=== PATIENT | female | born 1975 | race Caucasian/White ===

== ENCOUNTER → 2020-04-04 09:41 | Outpatient (CLI) | payer BC, SELFPAY ==
--- NOTE | ~2020-04-04 | XR_ITS ---
EXAMINATION:XR cervical spine 4-5V DATE: 04/04/2020 09:59 INDICATION: Neck pain TECHNIQUE: AP, lateral, bilateral oblique, and odontoid views of the cervical spine are provided. COMPARISON: None FINDINGS: Alignment is normal. The odontoid is intact. No fracture is identified. The vertebral body heights are maintained. There is mild loss of intervertebral disc space height at C5-6 and C6-7. Smal l degenerative osteophytes project from the anterior endplates of multiple vertebral bodies. There is mild facet and uncovertebral joint osteoarthritis at the lower cervical spine. Prevertebral soft tis sues are normal. IMPRESSION: 1. Mild cervical spondylosis. Reviewed, dictated and finalized at location A. APPRENTICE MECHANIC
--- NOTE | ~2020-04-04 | XR_ITS ---
EXAMINATION: XR thoracic spine 2V DATE: 04/04/2020 09:59 INDICATION: Right-sided neck and shoulder pain TECHNIQUE: AP, lateral and lateral swimmer's views of the thoracic spine were obtained. COMPARISON: 05/31/2018 FINDINGS: There is moderate loss of intervertebral disc space height in the midthoracic spine and mil d loss at multiple additional levels. There is no fracture. There is mild anterior wedging of several thoracic vertebra, likely physiologic. Bone alignment is normal. IMPRESSION: 1. Moderate thoracic spondylosis without acute findings or significant interval change. Reviewed, dictated and finalized at location A. ERY TEST ENGINEER
== END ==
PROVIDERS: PCP Family Medicine; Visit Provider Chiropractor
DX: M47.23 Other spondylosis with radiculopathy, cervicothoracic region (principal)
CPT/HCPCS: 72050; 72070

== ENCOUNTER 2021-10-03 12:44 | Emergency (ER) | payer BC, SELFPAY ==
[2021-10-03 12:55] VITALS: BP 120/90; PULSE 97; RESP 18; TEMP 36.5; O2SAT 99
--- NOTE | 2021-10-03 13:34 | ED.GENADULT ---
HPI - General Adult General Chief complaint: Ear Stated complaint: headache,rt ear discomfort Source: patient Mode of arrival: ambulatory Limitations: no limitations History of Present Illness HPI narrative: Patient presents for evaluation of respiratory symptoms for the last 8 days. Symptoms include sinus congestion, postnasal drainage, right-sided otalgia and cough. She called her PCP last week and received scripts for azithromycin and Keflex. She completed the azithromycin and is still taking the keflex. She reports a sinus headache and popping in the right ear. No recent sick contacts. She smokes 1/2 ppd. No personal hx of COVID. She has received her COVID vaccination. She has an appt with her PCP tomorrow. She states she does not feel like she is getting better. Related Data Home Medications Medication Instructions Recorded Confirmed alprazolam 0.5 mg tablet (Xanax) 0.5 mg PO DIRECTED 10/03/21 10/03/21 azithromycin 250 mg tablet 250 mg PO DAILY 10/03/21 10/03/21 (Zithromax Z-Raphael) bupropion HCl 150 mg 24 hr tablet, 150 tablet PO DAILY 10/03/21 10/03/21 extended release buspirone 5 mg tablet 5 tablet TID 10/03/21 10/03/21 cephalexin 500 mg capsule 500 cap Q8-10H 10/03/21 10/03/21 omeprazole 40 mg capsule,delayed 40 cap DAILY 10/03/21 10/03/21 release paroxetine HCl 40 mg tablet 40 tablet PO DAILY 10/03/21 10/03/21 triamterene 37.5 1 tablet DAILY 10/03/21 10/03/21 mg-hydrochlorothiazide 25 mg tablet zolpidem 10 mg tablet 1 tablet HS 10/03/21 10/03/21 Allergies Allergy/AdvReac Type Severity Reaction Status Date / Time No Known Allergies Allergy Verified 10/03/21 13:02 Review of Systems Review of Systems: CONSTITUTIONAL: Denies fever, chills, or sweats. EYES: Denies visual changes, redness, or discharge. ENT: Reports sinus congestion, postnasal drainage, rhinorrhea, and right sided otalgia CARDIOVASCULAR: Denies chest pain, palpitations, or edema. RESPIRATORY: Reports cough, Denies dyspnea. GASTROINTESTINAL: Denies abdominal pain, nausea, vomiting, or diarrhea. GENITOURINARY: Denies dysuria or hematuria. SKIN: Denies rash or itching. MUSCULOSKELETAL: Denies back pain, joint pain, or myalgia. NEUROLOGIC: Reports headahce. Denies numbness, dizziness, or weakness. PSYCHIATRIC: Denies anxiety or depression. [facility] Past Medical History Medical History History of tobacco use Family History Family History (Reviewed 10/03/21 @ 13:48 by Phi Nunez, [facility], ) Father Brain cancer Social History Social History (Reviewed 10/03/21 @ 13:48 by Phi Nunez, [facility], ) Smoking packs per day: 0.5 Smoking cigarettes per day: 10.0 Smoking status: Current every day smoker Tobacco type: cigarettes Substance use: never Gender identity (if verbalized by the patient): Female Spiritual care concerns: No Exam Narrative: GENERAL: Well-appearing, well-nourished, and in no acute distress. HEAD: Normocephalic, atraumatic. EYES: PERRLA and EOMI. ENT: Nares clear, no rhinorrhea or epistaxis. Mucous membranes moist. Oropharynx without tonsillar hypertrophy exudate or other lesions. Bilateral TMs pearly haynes nonbulging NECK: Supple. No adenopathy or masses. No carotid bruits or JVD CHEST: Clear to auscultation. No respiratory distress. No wheezes rales or rhonchi HEART: Regular rate and rhythm. No murmur heard. Normal peripheral pulses. ABDOMEN: Soft, nontender, nondistended, normal active bowel sounds. EXTREMITIES: Normal range of motion. No edema. SKIN: Warm, dry, no rash. NEURO: No focal deficits. Alert and oriented x3. PSYCH: Normal mood and affect. Course Course Emergency Course: This is a 46-year-old female who present with complaints of respiratory symptoms. She completed azithromycin and is currently taking Keflex. This seems to be appropriate to cover for CAP/sinusitis. She had a flu here that was negative. She declined COVID testing. Unfortunately, we do not
== END 2021-10-03 13:33 | disposition home or self-care (01) ==
PROVIDERS: Emergency Provider Nurse Practitioner; PCP Family Medicine
DX: J32.9 Chronic sinusitis, unspecified (principal); F17.210 Nicotine dependence, cigarettes, uncomplicated
CPT/HCPCS: 87804; 99213; G0463

== ENCOUNTER 2023-03-30 08:28 | Emergency (ER) | payer BC, SELFPAY ==
--- NOTE | 2023-03-30 08:36 | ED.URI ---
HPI - URI/Sore Throat General Chief Complaint: Upper Respiratory Infection Stated Complaint: Sinus Time Seen by Provider: 03/30/23 08:42 Source: patient Mode of arrival: ambulatory Limitations: no limitations History of Present Illness HPI Narrative: Mika is a 48-year-old female patient presenting to the clinic today with complaints of sinus congestion and coughing. She reports symptoms have been going on for 6 days. She denies any fever or chills. Denies any shortness of breath or chest pain. Nasal drainage is clear with blood in it at times. MD elicited complaint: cough, nasal congestion and sinus pain Related Data Home Medications Medication Instructions Recorded Confirmed alprazolam 0.5 mg tablet (Xanax) 0.5 mg PO DIRECTED 10/03/21 10/03/21 bupropion HCl 150 mg 24 hr tablet, 150 tablet PO DAILY 10/03/21 10/03/21 extended release buspirone 5 mg tablet 5 tablet TID 10/03/21 10/03/21 omeprazole 40 mg capsule,delayed 40 cap DAILY 10/03/21 10/03/21 release paroxetine HCl 40 mg tablet 40 tablet PO DAILY 10/03/21 10/03/21 triamterene 37.5 1 tablet DAILY 10/03/21 10/03/21 mg-hydrochlorothiazide 25 mg tablet zolpidem 10 mg tablet 1 tablet HS 10/03/21 10/03/21 Allergies Allergy/AdvReac Type Severity Reaction Status Date / Time No Known Allergies Allergy Verified 10/03/21 13:02 Review of Systems Review of Systems: Pertinent positives per HPI. Patient denies any fever, chills, rash, headache, visual changes, dizziness, shortness of breath, chest pain, palpitations, nausea, vomiting, diarrhea, constipation, abdominal pain, or any urinary issues. [facility] Past Medical History Medical History History of tobacco use Family History Family History Father Brain cancer Social History Social History Smoking packs per day: 0.5 Smoking cigarettes per day: 10.0 Smoking status: Current every day smoker Tobacco type: cigarettes Substance use: never Gender identity (if verbalized by the patient): Female Spiritual care concerns: No Comments At the time of my signature, I reviewed and agree with the nursing past medical, surgical, social, and family history. There is no relevant family history pertinent to the patient complaint. Exam Narrative: General: Well-developed, well nourished, in no apparent distress Head: Normocephalic, atraumatic Eyes: Pupils equally round and reactive to light bilaterally, EOM intact, sclera and conjunctive clear, no discharge, lids normal Ears: TMs intact and clear, ear canals clear, no drainage, grossly hearing normal. Nose: Nares patent, cler nasal discharge, moderate inflammation, no sinus tenderness. Mouth: Oral pharynx without lesions or masses, good dentition, MMM. Neck: Supple, trachea midline, no enlargement of anterior or posterior cervical nodes, no thyroid masses or goiter palpable. Cardio: Regular rate and rhythm, s1 and s2 normal, no murmur appreciated. Resp: Clear to auscultation bilaterally, no rhonchi, rales, wheezing or rubs Course Course Emergency Course: Portions of this record may have been created with voice recognition software. Level of Care: Express Care Visit Vital Signs Vital signs: Vital signs reviewed MDM - URI/Sore Throat MDM Narrative Medical decision making narrative: At the time of visit patient is resting comfortably on the exam table. Patient appears to be nontoxic. I suspect patient has URI. Supportive measures were discussed with the patient and they voiced understanding discharge instructions and agrees to treatment plan. Return precautions reviewed Differential Diagnosis Differential diagnosis: Likely upper respiratory infection, otitis media, sinusitis, viral infection, bronchitis, influenza, pharyngitis and other (COVID) Discharge Plan Discharge Clinical Impression: Upper respirato
[2023-03-30 08:38] VITALS: BP 115/71; PULSE 104; RESP 18; TEMP 36.3; O2SAT 99
== END 2023-03-30 09:04 | disposition home or self-care (01) ==
PROVIDERS: Emergency Provider Nurse Practitioner Family; PCP Family Medicine
DX: J06.9 Acute upper respiratory infection, unspecified (principal); F17.210 Nicotine dependence, cigarettes, uncomplicated
CPT/HCPCS: 99213; G0463

== ENCOUNTER 2023-04-27 08:06 | Emergency (ER) | payer BC, SELFPAY ==
--- NOTE | 2023-04-27 08:12 | ED.GENADULT ---
HPI - General Adult General Chief complaint: Ear Stated complaint: Right Ear Clogged Time Seen by Provider: 04/27/23 08:13 Source: patient Mode of arrival: ambulatory Limitations: no limitations History of Present Illness HPI narrative: 48-year-old female patient presents to the [facility] with complaints of right ear pain. Patient states she was seen about a week ago was given some steroids states this morning she was woken up with pain and felt like her ear was more clogged and had been. Patient has a runny nose with congestion. Denies fevers, body aches or chills. Patient states she has had some clear drainage coming from the right ear. Denies any pain in the left ear. Related Data Home Medications Medication Instructions Recorded Confirmed alprazolam 0.5 mg tablet (Xanax) 0.5 mg PO DIRECTED 10/03/21 04/27/23 omeprazole 40 mg capsule,delayed 40 cap DAILY 10/03/21 04/27/23 release paroxetine HCl 40 mg tablet 40 tablet PO DAILY 10/03/21 04/27/23 triamterene 37.5 1 tablet DAILY 10/03/21 04/27/23 mg-hydrochlorothiazide 25 mg tablet zolpidem 10 mg tablet 1 tablet HS 10/03/21 04/27/23 clonidine 0.2 mg/24 hr weekly See Rx Instructions .Route .COMPLEX 04/27/23 04/27/23 transdermal patch Allergies Allergy/AdvReac Type Severity Reaction Status Date / Time No Known Allergies Allergy Verified 04/27/23 08:12 Review of Systems Review of Systems: CONSTITUTIONAL: Denies fever, chills, or sweats. EYES: Denies visual changes, redness, or discharge. ENT: Positive rhinorrhea, congestion, denies sore throat, or positive right otalgia. CARDIOVASCULAR: Denies chest pain, palpitations, or edema. RESPIRATORY: Denies cough or dyspnea. GASTROINTESTINAL: Denies abdominal pain, nausea, vomiting, or diarrhea. GENITOURINARY: Denies dysuria or hematuria. SKIN: Denies rash or itching. MUSCULOSKELETAL: Denies back pain, joint pain, or myalgia. NEUROLOGIC: Denies headache, numbness, or weakness. PSYCHIATRIC: Denies anxiety or depression. [facility] Past Medical History Medical History History of tobacco use Family History Family History Father Brain cancer Social History Social History Smoking packs per day: 0.5 Smoking cigarettes per day: 10.0 Smoking status: Current every day smoker Tobacco type: cigarettes Substance use: never Gender identity (if verbalized by the patient): Female Spiritual care concerns: No Comments At the time of my signature I agree with nursing past medical history, surgical, social, and family history. There is no relevant family history pertinent to the presenting complaint. Exam Narrative: GENERAL: Well-appearing, well-nourished, and in no acute distress. HEAD: Normocephalic, atraumatic. EYES: PERRLA and EOMI. ENT: Nares with erythema edema noted bilaterally with the left nares swollen shut, no rhinorrhea or epistaxis. Mucous membranes moist. posterior pharynx with no erythema, tonsillar enlargement, exudates or lesions present. The right ear does appear to have some erythema possibly a small perforation to the eardrum NECK: Supple. No lymphadenopathy CHEST: Clear to auscultation. No respiratory distress. HEART: Regular rate and rhythm. No murmur heard. Normal peripheral pulses. ABDOMEN: Soft, nontender, nondistended, normal active bowel sounds. EXTREMITIES: Normal range of motion. No edema. SKIN: Warm, dry, no rash. NEURO: No focal deficits. Alert and oriented x3. Course Course Level of Care: Express Care Visit Vital Signs Vital signs: Vital Signs Temperature 36.4 C L 04/27/23 08:15 Pulse Rate 94 04/27/23 08:15 Respiratory Rate 16 04/27/23 08:15 Blood Pressure 115/77 04/27/23 08:15 Pulse Oximetry 99 04/27/23 08:15 Oxygen Delivery Room Air 04/27/23 08:15 Temperature 36.4 C L 04/27/23 08:15 Pulse Rate 94 04/27/23 08:1
[2023-04-27 08:15] VITALS: BP 115/77; PULSE 94; RESP 16; TEMP 36.4; O2SAT 99
== END 2023-04-27 08:46 | disposition home or self-care (01) ==
PROVIDERS: Emergency Provider Nurse Practitioner Family; PCP Physician Assistant
DX: H66.91 Otitis media, unspecified, right ear (principal); F17.210 Nicotine dependence, cigarettes, uncomplicated
CPT/HCPCS: 99213; G0463

== ENCOUNTER 2024-10-21 11:36 | Emergency (ER) | payer OTHER, SELFPAY ==
--- NOTE | 2024-10-21 11:37 | ED_ITS ---
HPI - Wound/Laceration General Chief Complaint: Wound/Laceration Stated Complaint: Rt hand Finger Cut Time Seen by Provider: 10/21/24 11:37 Source: patient Mode of arrival: ambulatory Limitations: no limitations History of Present Illness HPI narrative: Hayde is a 49-year-old female patient presenting to the clinic today with complaints of a cut on her right 5th finger. She reports she was using a brand new mandolin-cutting cucumbers when she cut her finger. This occurred just prior to arrival. Has a 2cm skin avulsion to the ulnar side of the right 5th finger with nail involvement. Patient has the skin the was accidently removed. Lost a lateral part of the fingernail. States she can not get it to stop bleeding. Tetanus unk. Rates pain 01/22. Related Data Home Medications ?Medication ?Instructions ?Recorded ?Confirmed ?Last Taken ?Type alprazolam 0.5 mg tablet (Xanax) 0.5 mg PO DIRECTED 10/03/21 04/27/23 Unknown History omeprazole 40 mg capsule,delayed 40 cap DAILY 10/03/21 04/27/23 Unknown History release paroxetine HCl 40 mg tablet 40 tablet PO DAILY 10/03/21 04/27/23 Unknown History triamterene 37.5 1 tablet DAILY 10/03/21 04/27/23 Unknown History mg-hydrochlorothiazide 25 mg tablet zolpidem 10 mg tablet 1 tablet HS 10/03/21 04/27/23 Unknown History Allergies Allergy/AdvReac Type Severity Reaction Status Date / Time No Known Allergies Allergy Verified 10/21/24 11:44 Review of Systems Review of Systems: Pertinent positives per HPI. Patient denies any fever, chills, rash, headache, visual changes, dizziness, cough, runny nose, sore throat, shortness of breath, chest pain, palpitations, nausea, vomiting, diarrhea, constipation, abdominal pain, or any urinary issues. [facility] Past Medical History Medical History History of tobacco use Family History Family History Father Brain cancer Social History Social History Smoking packs per day: 0.5 Smoking cigarettes per day: 10.0 Smoking status: Current every day smoker Tobacco type: cigarettes Substance use: never Gender identity (if verbalized by the patient): Female Spiritual care concerns: No Comments At the time of my signature, I reviewed and agree with the nursing past medical, surgical, social, and family history. There is no relevant family history pertinent to the patient complaint. Exam Narrative: General: Well-developed, well nourished, in no apparent distress Head: Normocephalic, atraumatic. Cardio: Regular rate and rhythm, s1 and s2 normal, no murmur appreciated. Resp: Clear to auscultation bilaterally, no rhonchi, rales, wheezing or rubs. Integumentary: [place], warm, and dry, 2 x0.5 cm skin avulsion to the ulnar side of the right 5th finger with nail involvement. Not overlying the dip or pip joint. Bleeding controlled. Course Course Emergency Course: Portions of this record may have been created with voice recognition software. Level of Care: Express Care Visit Vital Signs Vital signs: Vital Signs Temperature 36.5 C 10/21/24 11:44 Pulse Rate 78 10/21/24 11:44 Respiratory Rate 18 10/21/24 11:44 Blood Pressure 108/69 10/21/24 11:44 Pulse Oximetry 97 10/21/24 11:44 Oxygen Delivery Room Air 10/21/24 11:44 Temperature 36.5 C 10/21/24 11:44 Pulse Rate 78 10/21/24 11:44 Respiratory Rate 18 10/21/24 11:44 Blood Pressure 108/69 10/21/24 11:44 Pulse Oximetry 97 10/21/24 11:44 Oxygen Delivery Room Air 10/21/24 11:44 Vital signs reviewed Procedures Laceration Laceration 1: Date: 10/21/24 Site: hand (5th finger) Side (If applicable): right Size (cm): 2 Description: irregular, clean and other (Complete skin avulsion with lateral nail involvement. ) Depth: simple, single layer Local Anesthetic: lidocaine 1% Amount of anesthesia used (mL): 3 Pre-repair: wound explored, irrigated and irrigated extensively ====== Skin Level ====== Skin layer closed with: nylon Size (cm): 5-0 Number of sutures: 8 Technique: simple, interrupted ====== Subcutaneous Layer ====== ====== Muscle Layer ====== ====== Tendon Layer ====== Dressing: Verbal consent obtained for laceration repair/skin reattachment. Risk and benefits explained and patient voiced understanding. Area was cleansed with sterile saline and antiseptic wound wash. Removed skin was cleansed with sterile saline and antiseptic wound wash. A 27 gauge needle was then used to instill (3) ml of 1% lidocaine without epi into the proximal distal phalanx to create digital block. Area was prepped and draped using sterile technique. A 5-0 suture on a p needle was used to place (8) interrupted sutures reattaching the avulsed skin and bringing the wound edges together- well approximated. Patient tolerated procedure well. Tube gauze and sterile dressing applied. Tetanus updated. MDM - Wound/Laceration MDM Narrative Medical decision making narrative: At the time of visit patient is resting comfortably on the exam table. Patient appears to be nontoxic. Procedures: Removed skin was cleaned/irrigated using sterile normal saline and antiseptic wound wash. Laceration repair was performed-reattaching the skin using 8 interrupted sutures. Skin edges well approximated. Patient tolerated well. Plan: Patient has skin avulsion to the right 5th finger with nail involvement. Skin was cleansed and reattached. Eight interrupted sutures were placed bringing the wound edges well approximate. Patient tolerated procedure well. Will have the patient follow-up in [address] Batista or PCP for wound check. Sutures out in 10-14 days. Will cover for secondary infection-Keflex sent to the pharmacy Supportive measures were discussed with the patient and they voiced understanding discharge instructions and agrees to treatment plan. Return precautions reviewed Differential Diagnosis Differential diagnosis: Likely laceration, abscess, abrasion and avulsion of s kin Discharge Plan Discharge Clinical Impression: Avulsion of skin of finger Qualifiers: Encounter type: initial encounter Qualified Code(s): S61.209A - Unspecified open wound of unspecified finger without damage to nail, initial encounter Patient Disposition: Home Condition: Stable Instructions: Antibiotic Form, Skin Avulsion (ED) Additional Instructions: Tdap was updated in the clinic today. You have a 2cm skin avulsion to the right 5th finger with nail involvement. Skin was reattached in the clinic today- well approximated- 8 sutures were placed. Wound was cleansed in the clinic today. Leave bandage on for 24 hours then may remove and apply band aide covering as needed. Keep wound clean and dry Do not submerge your hand in water or apply any ointments Wash daily with soap and water and pat dry. Skin sutures out in 10-14 days Take cephalexin as prescribed. Follow up with Dr. Batista- call office to schedule an appointment- would like you to be seen in two days for wound check. Watch for signs and symptoms of infection- redness, streaking, swelling, purulent discharge, or increase in pain. Follow up with your PCP in 2 days for wound check if you can not get into see Dr. Batista. Patient Language: Wallisian Prescriptions: New cephalexin 500 mg capsule 500 mg PO Q12H 7 Days Qty: 14 0RF No Action omeprazole 40 mg capsule,delayed release(DR/EC) 40 cap DAILY alprazolam [Xanax] 0.5 mg Tablet 0.5 mg PO DIRECTED triamterene-hydrochlorothiazid 37.5-25 mg tablet 1 tablet DAILY zolpidem 10 mg tablet 1 tablet HS paroxetine HCl 40 mg tablet 40 tablet PO DAILY amoxicillin 500 mg tablet 1,000 mg PO Q12H 7 Days Qty: 28 0RF Follow-up/Referrals: Adalberto Macdonald MD [Physician] - 2 Days (Skin avulsion with nail involvement to the left 5th finger with reattachment of skin ) Carmen Diana PA-C [Physician Mechanic Chief] - Time of Disposition: 12:40 Quality NIHSS Nursing Documentation ED NIHSS nursing documentation: reviewed/agree
--- OUTSIDE RECORDS SUMMARY | 2024-10-21 11:39 | XMS_ITS | Clinical Summary ---
Author Organization [facility] Address [address] [place] [id number] Care Team Providers Care Presales Consultant Name Role Phone No, Physician Primary Care Provider [phone] Allergies Active Allergy Reactions Criticality Noted Date Comments Prochlorperazine Other (See comments) High 4 HR jumped to 140's SVT Medications ALPRAZolam (XANAX) 0.5 mg tablet TK 1 TO 2 TS PO QD 2 12/08/19 19 Active omeprazole (PriLOSEC) 40 mg capsule TK 1 C PO D 3 11/13/19 19 Active TRIAMTERENE-HYDROC HLOROTHIAZIDE 37.5-25 mg per tablet TK 1 T PO D 3 11/13/19 19 Active zolpidem (AMBIEN) 10 mg tablet TK 1 T PO QPM PRF INSOMNIA 2 12/08/19 19 Active PARoxetine (PAXIL) 40 mg tabletIndications: Hot flashes,Night sweats Take 1 tablet (40 mg total) by mouth every morning 90 tablet 4 12/30/19 20 Active cloNIDine (CATAPRES-TTS) 0.2 mg/24 hr APPLY 1 PATCH TOPICALLY TO THE SKIN EVERY WEEK DIRECTED 07/07/19 22 Active vitamin E 400 unit capsule Take 1 capsule (400 Units total) by mouth daily Active HYDROcodone-acetam inophen (NORCO) 5-325 mg per tabletIndications: Pain Take 1 tablet by mouth every 6 (six) hours as needed for pain 20 tablet 12/06/19 24 Active ondansetron ODT (ZOFRAN-ODT) 8 mg disintegrating tabletIndications: Prevention of Post-Operative Nausea and Vomiting Take 1 tablet (8 mg total) by mouth every 8 (eight) hours as needed for nausea or vomiting 12 tablet 1 12/06/19 24 Active diazePAM (VALIUM) 10 mg tabletIndications: Muscle Spasm Take 1 tablet (10 mg total) by mouth every 8 (eight) hours as needed for muscle spasms 30 tablet 1 12/06/19 24 Active amoxicillin-clavul anate (Augmentin) 875-125 mg per tablet Take 1 tablet (875 mg of amoxicillin total) by mouth 2 (two) times a day for 3 doses Take 1 tablet night before, morning of, and night of dental cleaning. 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 Family history of breast cancer 08/23/2021 Headache 11/14/2015 Overview (08/26/2023): Location: None;Severity: Moderate;Progress: Stable;Added By: Nanette Veras;Add to Current Problems: NO Dizziness and giddiness 10/06/2015 Overview (08/26/2023): Location: None;Severity: Moderate;Progress: Stable;Added By: Gina Blank;Add to Current Problems: YES Otitis media 06/14/2015 Overview (08/26/2023): Location: None;Severity: Moderate;Progress: Stable;Added By: Yue Ireland;Add to Current Problems: YES Acute maxillary sinusitis 11/15/2014 Overview (08/26/2023): Location: None;Severity: Moderate;Progress: Stable;Added By: Yue Ireland;Add to Current Problems: YES Location: None;Severity: Moderate;Progress: Stable;Added By: Nanette Veras;Add to Current Problems: YES Gastroesophageal reflux disease 08/04/2014 Overview (08/26/2023): Location: None;Severity: Moderate;Progress: Stable;Added By: Nanette Veras;Add to Current Problems: YES Angioedema 04/15/2014 Overview (08/26/2023): Location: None;Severity: Moderate;Progress: Stable;Added By: Jocelyne William;Add to Current Problems: YES Allergic urticaria 04/12/2014 Overview (08/26/2023): Location: None;Severity: Moderate;Progress: Stable;Added By: Damir Dwyer;Add to Current Problems: YES Benign essential hypertension 10/12/2013 Overview (08/26/2023): Location: None;Severity: Moderate;Progress: Stable;Added By: Nanette Veras;Add to Current Problems: YES Location: None;Severity: Moderate;Progress: Stable;Added By: Angelina George;Add to Current Problems: YES Elevated blood-pressure read ing without diagnosis of hypertension 10/12/2013 Overview (08/26/2023): Location: None;Severity: Moderate;Progress: Stable;Added By: Sunitha Cortes;Add to Current Problems: NO Generalized anxiety disorder 05/10/2013 Overview (08/26/2023): Location: None;Severity: Moderate;Progress: Stable;Added By: Jeannette Sauceda;Add to Current Problems: NO Transient insomnia 05/10/2013 Overview (08/26/2023): Location: None;Severity: Moderate;Progress: Stable;Added By: Jeannette Sauceda;Add to Current Problems: NO Psychogenic headache 02/02/2013 Overview (08/26/2023): Location: None;Severity: Moderate;Progress: Stable;Added By: Nanette Veras;Add to Current Problems: NO Tobacco dependence syndrome 02/02/2013 Overview (08/26/2023): Location: None;Severity: Moderate;Progress: Stable;Added By: Yue Ireland;Add to Current Problems: YES Location: None;Severity: Moderate;Progress: Stable;Added By: Nanette Veras;Add to Current Problems: NO Acute upper respiratory infection 06/05/2012 Overview (08/26/2023): Location: None;Severity: Moderate;Progress: Stable;Added By: Yue Ireland;Add to Current Problems: NO Cough 06/05/2012 Overview (08/26/2023): Location: None;Severity: Moderate;Progress: Stable;Added By: Margaux Leyva;Add to Current Problems: NO Immunizations Immunization Administration Dates Next Due Pfizer SARS-CoV-2 Monovalent Vaccination (12+ Yrs) PURPLE 07/15/2020,06/24/2020 Surgical History Surgery Date Site/Laterality Comments CERVICAL CONE BIOPSY COMBINED HYSTEROSCOPY DIAGNOSTIC / D&C SALPINGECTOMY Bilateral ENDOMETRIAL ABLATION US ABDOMEN COMPLETE W LIVER DOPPLER (C) 10/23/2017 Right OOPHORECTOMY Left TUBAL LIGATION MASTECTOMY 02/07/2022 Bilateral BILATERAL BREAST RECONSTRUCTION WITH TISSUE JUNIOR GRAPHIC DESIGNER AND TISSUE MATRIX BREAST SURGERY 06/13/2022 - 07/13/2022 Bilateral EXCHANGE BILATERAL TISSUE EXPANDERS FOR PERMANENT SILICONE GEL IMPLANTS Medical History Medical History Date Comments Hypertension History of abnormal cervical Pap smear Anxiety Ovarian cyst Motion sickness GERD (gastroesophageal reflux disease) Genetic susceptibility to ma lignant neoplasm of breast PONV (postoperative nausea and vomiting) Benign essential hypertension 10/12/2013 Lo cation: None;Severity: Moderate;Progress: Stable;Added By: Nanette Veras;Add to Current Problems: YESLocation: None;Severity: Moderate;Progress: Stable;Added By: Angelina George;Add to Current Problems: YES Diverticulosis of colon 11/24/2021 Gastroesophageal reflux disease 08/04/2014 Location: None;Severity: Moderate;Progress: Stable;Added By: Nanette Veras;Add to Current Problems: YES Generalized anxiety disorder 05/10/2013 Loc ation: None;Severity: Moderate;Progress: Stable;Added By: Jeannette Sauceda;Add to Current Problems: NO Cancer (HCC) breast Family History Medical History Relation Name Comments Breast cancer Cousin Brain cancer Father Colon cancer Maternal Grandfather Aneurysm Mother Colon cancer Mother's Brother Bone cancer Mother's Sister Breast cancer Mother's Sister Liver cancer Mother's Sister Pancreatic cancer Neg Hx Relation Name Status Comments Cousin Other 3rd cousin moms side Father Maternal Grandfather Mother Mother's Brother Mother's Sister diagnosis ag e 43 Social History Tobacco Use Types Packs/Day Years Used Date Smoking Tobacco: Former Cigarettes 0.5 30 0 11/1991 - 11/2021 Smokeless Tobacco: Never Tobacco Cessation:Counseling Given: Not Answered Alcohol Use Standard Drinks/Week Comments Yes 0 (1 standard drink = 0.6 oz pur e alcohol) AUDIT-C Answer Date Recorded Q1: How often do you have a drink containing alc ohol? 2-4 times a month 10/09/2022 Q2: How many drinks containi ng alcohol do you have on a typical day when you are drinking? 1 or 2 10/09/2022 Q3: How often do you have si x or more drinks on one occasion? Never 10/09/2022 Personal Safety Answer Date Recorded Have you ever been in or are you currently in a harmful physical or emotional relationship or is someone making you feel afraid or unsafe? Denies 12/06/2023 Comments No Sex and Gender Information Value Date Recorded Sex Assigned at Not on file Legal Sex Female 6:44 PM [employer]OL[employer] Gender Identity Not on file Sexual Orientation Not on file Obstetrics History Para Term AB IAB SAB Ectopic Multiple Livin g Live Births 6 1 1 5 2 3 1 Date Outcome GA Total Labor Labor/2nd/3rd Weight Sex Type Anes PTL Monique A1 A5 Name Clin Term SAB SAB SAB IAB IAB Last Filed Vital Signs Vital Sign Reading Time Taken Comments Blood Pressure 124/73 12/06/2023 6:45 PM CDT Pulse 79 12/06/2023 6:45 PM CDT Temperature 36.6 C (97.8 F) 12/06/2023 6:15 PM CDT Respiratory Rate 9 12/06/2023 6:35 PM CDT Oxygen Saturation 94% 12/06/2023 6:45 PM CDT Inhaled Oxygen Concentration - - Weight 63.7 kg (140 lb 6.4 oz) 12/06/2023 11:00 AM CDT Height 160 cm (5' 3) 12/06/2023 11:00 AM CDT Body Mass Index 24.87 12/06/2023 11:00 AM CDT Plan of Treatment Health Maintenance Due Date Last Done Comments Colon Cancer Screening-Colonoscopy 1975 Depression Screening 1975 Hepatitis C Screening 1975 Hepatitis B Screening 1993 Cervical Cancer Screening 08/02/2022 08/02/2021, 09/2018 Regular Well Visit/Exam 18-64 08/02/2022 08/02/2021, 12/30/2019, 12/19/2018 Breast Cancer Screening-Mammogram 11/22/2022 11/22/2021, 10/13/2021, 12/19/2018, Additional history exists Covid-19 Vaccine ( season) 2023 07/15/2020, 06/24/2020 Influenza Vaccine (Season Ended) 2024 DTaP/Tdap/Td Vaccine (2 - Td or Tdap) 09/03/2028 09/03/2018 Pneumococcal vaccine <65 Aged Out No longer eligible based on patient's age to complete this topic Medical Devices Implanted Type Area Equipment Lead Device Identifier Shelf Expiration Date Model / Serial / Lot [employer] Implant Mammary Cpx4 Plus Sm [facility] 450cc [id number] - [id number] - [id number] Implanted:Qty : 1 on 02/07/2022 by Dean Lucero MD at [facility] Right: Breast [employer] [id number] / [id number] / [employer] Implant Mammary Cpx4 Plus Sm [facility] 450cc [id number] - [id number] - [id number] Implanted:Qty : 1 on 02/07/2022 by Dean Lucero MD at [facility] Left: Breast [employer] [id number] / [id number] / [employer] Implant Breast High Profile Smooth Memorygel Boost 585cc Gel [id number] - [id number] - [id number] Implanted:Qty : 1 on 06/14/2022 by Jorge Schmitt, DO at [facility] [employer] [id number] 07/29/2026 [id number] / [id number] / [id number] [employer] Implant Breast High Profile Smooth Memorygel Boost 585cc Gel [id number] - [id number] - [id number] Implanted:Qty : 1 on 06/14/2022 by Jorge Schmitt, DO at [facility] [employer] [id number] 05/18/2026 [id number] / [id number] / [id number] [employer] Implant Breast Round High Profile Smooth Opus Luxe 620cc Gel [id number] - [id number] - [id number] Implanted:Qty : 1 on 12/06/2023 by Malika Moore MD at [facility] Right: Breast [employer] [id number] 07/26/2028 [id number] / [id number] / [employer] Implant Breast Round High Profile Smooth Opus Luxe 620cc Gel [id number] - [id number] - [id number] Implanted:Qty : 1 on 12/06/2023 by Malika Moore MD at [facility] Left: Breast [employer] [id number] 07/26/2028 [id number] HP / [id number] / Procedures Procedure Name Priority Date/Time Associated Diagnosis Comments DIAGNOSTIC MAMMOGRAM BILATERAL W JUAN Schedule Routine, Read Routine (OP Routine) 11/22/2021 10:40 AM CDT Abnormal screening mammogram PAP AND HIGH RISK HPV, REFLEX TO GENOTYPING Routine 08/02/2021 11:09 AM CDT Well woman exam from Last 3 Months or Most Recently Relevant to Health Maintenance Results * DIAGNOSTIC MAMMOGRAM BILATERAL W JUAN (11/22/2021 10:40 AM CDT) Anatomical Region Laterality Modality Breast Bilateral Mammography 11/22/2021 11:1 8 AM CDT Narrative 11/22/2021 11:27 AM CDT EXAM DESCRIPTION: DIAGNOSTIC MAMMOGRAM BILATERAL W JUAN; US BREAST BILATERAL LIMITED REASON FOR STUDY: 46-year-old woman comes in today for evaluation of bilateral breast asymmetries seen on screening mammogram dated 10/13/2021, and second-look ultrasound of the right breast for a findings seen on breast MRI dated 10/30/2021. The patient is being evaluated for prophylactic bilateral mastectomy due to PALB2 gene mutation. COMPARISON: Breast MRI dated 10/30/2021. Screening mammograms dated 10/13/2021, 12/19/2018. FINDINGS: CC and MLO digital breast tomosynthesis of both breasts with C view was performed. Targeted sonographic examination of both breasts was also performed with real-time grayscale images and color Doppler. FINDINGS: MAMMOGRAPHIC FINDINGS: DENSITY: There are scattered areas of fibroglandular density. BREASTS: A small low-density oval mass with circumscribed margins is confirmed at approximately the 8 o'clock to 9 o'clock position of the right breast middle depth, 5-6 cm from the nipple, measuring approximately 6 mm. This probably corresponds to the MRI finding of concern, and targeted sonographic examination will be performed. A lobular low-density mass with circumscribed margins is noted at approximately the 4 o'clock position of the left breast, 8 cm from the nipple, measuring approximately 15 mm. Compared to 2019 this has only minimally increased in size where it measured approximately 13 mm. On MRI this corresponds to the high T2 signal intensity finding with minimal postcontrast enhancement described at the 4 o'clock position of the left breast. ULTRASOUND FINDINGS: Targeted sonographic examination of the right breast at the 9 o'clock position 5-6 cm from the nipple demonstrates an oval mass with circumscribed margins that is wider than taller and measures 6 x 3 x 5 mm. The mass has a mixed anechoic and hypoechoic internal echo pattern, slight posterior acoustic enhancement, and no internal blood flow on color Doppler. This corresponds to the finding of concern seen on mammogram and MRI. On MRI this was markedly T2 hyperintense, and the finding is considered consistent with a benign complicated cystic mass. Targeted sonographic examination of the left breast at the 4 o'clock position 6 cm from the nipple demonstrates an oval/lobular mass with circumscribed margins that is wider than taller and measures 15 x 4 x 10 mm. This mass is mostly anechoic with thin internal septations. There is slight posterior acoustic enhancement, and no internal blood flow is seen on color Doppler. This corresponds to the finding of concern seen on mammogram. On MRI this finding was markedly T2 hyperintense, and demonstrated minimal postcontrast enhancement. The finding is considered consistent with a benign complicated cystic mass. IMPRESSION: 1. The finding of concern in the right breast on recent screening mammogram correlates with the finding of concern described in the right breast on recent breast MRI, and sonographic features along with appearance on other imaging modalities, is consistent with a benign complicated cystic mass that measures 6 mm. 2. The finding of concern in the left breast on recent screening mammogram corresponds to a cystic mass on sonogram at the 4 o'clock position 6 cm from the nipple, measuring 15 mm. Given the appearance on MRI, and minimally increase in size compared to 2019, this is considered a benign complicated cystic mass. 3. Overall, there are no suspicious findings in either breast on mammogram, sonogram, or MRI that would preclude patient from bilateral prophylactic mastectomy. BIRADS: 2 - Benign I discussed the findings and recommendations with the patient at the time of the examination. THIS IS AN ELECTRONICALLY VERIFIED FINAL REPORT 11/22/2021 11:27 AM - Electronically signed by Saw Cross M.D. RL: KENYON Report ID: [id number] Reading Location: [facility] us Sangeetha Tran MD IMG MAMMO PROCEDURES Final Res ult * Pap and High Risk HPV, reflex to Genotyping (08/02/2021 11:09 AM CDT) Thin prep (Pap test) 08/02/2021 11:09 AM CDT 08/03/2021 11:09 AM CDT Narrative PATHOLOGY [facility] - 08/07/2021 11:24 AM CDT [facility] Department of Pathology [address] [place], [place] [id number] Final Report with Addendum Note to Patients: This report may contain a detailed description of human tissue sent by a health care provider to the laboratory for pathologic evaluation. The content of this report is essential for diagnosis and may provide important critical findings. This information may be unfamiliar to patients to review without a medical professional present. It is advised that the patient review this report in the presence of a health care provider who can answer questions and explain the details. Patient Name: HAYDE ZEPEDA Address: [address] [place] [address] Gender: F : 1975 (Age: 46) Service: Laboratory Location: Hospital #: [id number] Patient Type: [facility] SPECIMEN Taken: 08/02/2021 Received: 08/03/2021 Accessioned:: 08/04/2021 Reported: 08/07/2021 Physician(s): Sangeetha Tran M.D. [facility] Diagnosis: Source of Specimen: SCREENING THIN PREP IMAGED PAP w/ HPV Specimen Adequacy: - Satisfactory for evaluation; endocervical/transformation zone component present General Category: - Negative for intraepithelial lesion or malignancy GILMA Sosa(ASCP) Report Electronically Reviewed and Signed Out By KEYSHAWN SosaASCP) 08/07/2021 11:24:01 Addenda: HPV Test Interpretation NEGATIVE for types 16, 18, 31, 33, 35, 39, 45, 51, 52, 56, 58, 59, 66 and 68. Test performed utilizing Gen-Probe Aptima assay. GILMA Boo(ASCP) Report Electronically Reviewed and Signed Out By KEYSHAWN BooASCP) 08/04/2021 15:01:27 Specimen(s) Received: A: SCREENING THIN PREP IMAGED PAP w/ HPV Clinical History: Menstrual History: Ablation The Pap test is a screening test used to aid in the detection of cervical cancer and its precursors. It should not be the sole means by which malignant and premalignant lesions are diagnosed. Both false negative and false positive results may occur. It also has poor sensitivity for the detection of endometrial lesions and should not be used to evaluate suspected endometrial abnormalities. For these reasons it is most important to obtain Pap tests at regular intervals. The performance characteristics of some immunohistochemical stains, fluorescence in-situ hybridization tests and immunophenotyping by flow cytometry cited in this report (if any) were determined by the Surgical Pathology Department at [facility] as part of an ongoing coding quality coordinator program and in compliance with federally mandated regulations drawn from the Clinical Laboratory Improvement Act of 1988 (CLIA '88). Some of these tests rely on the use of analyte specific reagents and are subject to specific labeling requirements by the US Food and Drug Administration. Such diagnostic tests may only be performed in a facility that is certified by the Department of Health and Human Services as a high complexity laboratory under CLIA '88. The FDA has determined that such clearance or approval is not necessary. This test is used for clinical purposes. It should not be regarded as investigational or for research. Nevertheless, federal rules concerning the medical use of analyte specific reagents require that the following disclaimer be attached to the report: This test was developed and its performance characteristics determined by the Surgical Pathology Department [facility]. It has not been cleared or approved by the U. S. Food and Drug Administration. Sangeetha Tran MD LAB CYTOLOGY ORDERABLES Final Result [facility] from Last 3 Months or Most Recently Relevant to Health Maintenance Insurance CHOICE [facility] [place] [facility] Advance Directives For more information, please contact: [phone] * Full Code (Latest Code Status on File) Date Activated Date Inactivated Comments 02/07/2022 3:57 PM 02/09/2022 8:05 PM Care Teams Presales Consultant Relationship Specialty Start Date End Date No, Physician PCP - General 12/06/23
--- OUTSIDE RECORDS SUMMARY | 2024-10-21 11:39 | XMS_ITS | Referral Summary ---
Author Organization [facility] Address [address] [place] [id number] Care Team Providers Care Nylon Winder Name Role Phone No, Physician Primary Care Provider [phone] Allergies Active Allergy Reactions Criticality Noted Date [...] (08/26/2023): Location: None;Severity: Moderate;Progress: Stable;Added By: Yue Irelnad;Add to Current Problems: YES Location: None;Severity: Moderate;Progress: Stable;Added By: Nanette Veras;Add to Current Problems: NO Acute upper respiratory infection 06/05/2012 Overview (08/26/2023): Location: None;Severity: Moderate;Progress: Stable;Added By: Yue Ireland;Add to Current Problems: NO Cough 06/05/2012 Overview (08/26/2023): Location: None;Severity: Moderate;Progress: Stable;Added By: Margaux Leyva;Add to Current Problems: NO Immunizations Immunization Administration Dates Next Due Pfizer SARS-CoV-2 Monovalent Vaccination (12+ Yrs) PURPLE 07/15/2020,06/24/2020 Social History Tobacco Use Types Packs/Day Years [...] on file 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 Gender Identity Not on file Sexual Orientation Not on file Last Filed Vital Signs Vital Sign Reading [...] 12/06/2023 11:00 AM CDT Plan of Treatment Not on file Medical Devices Implanted Type Area Heel Shaper Device Identifier Shelf Expiration Date Model / Serial / Lot [employer] Implant Mammary Cpx4 Plus Sm Te 450cc [id number] - [id number] - [id number] Implanted:Qty : 1 on 02/07/2022 by Dean Lucero MD at [facility] Right: Breast [employer] [id number] / [id number] / [employer] Implant Mammary Cpx4 Plus Sm Te 450cc [id number] - [id number] - [id number] Implanted:Qty : 1 on 02/07/2022 by Dean Lucero MD at [facility] Left: Breast [employer] [id number] / [id number] / [employer] Implant Breast High Profile Smooth Memorygel Boost 585cc Gel [id number] - [id number] - [id number] Implanted:Qty : 1 on 06/14/2022 by Jorge Schmitt DO at [facility] [employer] [id number] 07/29/2026 [id number] / [id number] / [id number] [employer] Implant Breast High Profile Smooth Memorygel Boost 585cc Gel [id number] - [id number] - [id number] Implanted:Qty : 1 on 06/14/2022 by Jorge Schmitt DO at [facility] [employer] [id number] 05/18/2026 [id number] / [id number] / [id number] [employer] Implant Breast Round High Profile Smooth Opus Luxe 620cc Gel [id number] - [id number] - [id number] Implanted:Qty : 1 on 12/06/2023 by Malika Moore MD at [facility] Right: Breast [employer] [id number] 07/26/2028 [id number] / [id number] / [employer] Implant Breast Round High Profile Smooth Opus Luxe 620cc Gel [id number] - [id number] - [id number] Implanted:Qty : 1 on 12/06/2023 by Malika Moore MD at [facility] Left: Breast [employer] [id number] 07/26/2028 [id number] / [id number] / Procedures Procedure Name Priority Date/Time Associated [...] Saw Cross M.D. RL: KENYON Report ID: [id number] Reading Location: [facility] us Sangeetha Tran MD IMG MAMMO PROCEDURES Final Res ult * Pap and High Risk HPV, reflex to Genotyping (08/02/2021 11:09 AM CDT) Thin prep (Pap test) 08/02/2021 11:09 AM CDT 08/03/2021 11:09 AM CDT Narrative PATHOLOGY [facility] - 08/07/2021 11:24 AM CDT [facility] Department of Pathology [address] [place], [place] [id number] Final Report with Addendum Note to Patients: [...] the details. Patient Name: HAYDE ZEPEDA Address: [address] [place] [address] [place] [address] Gender: F : 1975 (Age: 46) Service: Laboratory Location: Hospital #: [id number] Patient Type: [facility]ALTH SYSTEM SPECIMEN Taken: 08/02/2021 Received: 08/03/2021 Accessioned:: 08/04/2021 Reported: 08/07/2021 Physician(s): Sangeetha Tran M.D. [facility] Diagnosis: Source of Specimen: SCREENING THIN PREP IMAGED PAP w/ HPV Specimen Adequacy: - Satisfactory for evaluation; endocervical/transformation zone component present General Category: - Negative for intraepithelial lesion or malignancy GILMA Sosa(ASCP) Report Electronically Reviewed and Signed Out By GILMA Sosa(ASCP) 08/07/2021 11:24:01 Addenda: HPV Test Interpretation NEGATIVE for types 16, 18, 31, 33, 35, 39, 45, 51, 52, 56, 58, 59, 66 and 68. Test performed utilizing Gen-Probe Aptima assay. GILMA Boo(ASCP) Report Electronically Reviewed and Signed Out By GILMA Boo(ASCP) 08/04/2021 15:01:27 Specimen(s) Received: A: SCREENING THIN [...] determined by the Surgical Pathology Department at [facility] as part of an ongoing quality assurance monitor chassis program and in compliance with federally mandated [...] characteristics determined by the Surgical Pathology Department [facility]. It has not been cleared or approved by the [place]. [place]. Food and Drug Administration. Sangeetha Tran MD LAB CYTOLOGY ORDERABLES Final Result PATHOLOGY [facility] from Last 3 Months or Most Recently Relevant to Health Maintenance [place] [facility] [employer] [place] Advance Directives For more information, please contact: [phone] * Full Code (Latest Code Status on File) Date Activated Date Inactivated Comments 02/07/2022 3:57 PM 02/09/2022 8:05 PM Care Teams Nylon Winder Relationship Specialty Start Date End Date No, Physician PCP - General 12/06/23
--- OUTSIDE RECORDS SUMMARY | 2024-10-21 11:40 | XMS_ITS | Data Portability ---
Author Organization [facility] Address [address] [facility] [place] [address] Care Team Providers Care Operations Label Clerk Name Role Phone TIM BEKAH Primary Care Provider ISAI GARCÍA [facility] PRERNA RICHARDSON Psychiatrist [phone] Assessment No assessment recorded. Plan of Treatment Reminders Order Date Submit Date Provider Last Modified By Organization Details Last Modified Time Details Appointments None recorded. Lab lipid panel, serum 2024 025 [employer] [facility], [address], [address], 18:15:56 TSH, serum or plasma 2024 025 [employer] [facility], [address], [address], 18:15:59 lh + FSH, serum 2024 025 [employer] [facility], [address], [address], 18:15:57 estrogen, total, serum 2024 025 [employer] [facility], [address], [address], 18:15:58 CBC w/ auto diff 2023 024 [facility], [address] [facility] [address], [place], [address], 4 04:27:03 CMP, serum or plasma 2023 024 [facility], [address] [facility] [address], [place], [address], 4 04:27:02 lipid panel, serum 2023 024 [facility], [address] [facility] [address], [place], [address], 4 04:27:01 Referral None recorded. Procedures None recorded. Surgeries None recorded. Imaging None recorded. Medication Orders Medrol (Raphael) 4 mg tablets in a dose pack 2024 025 [facility] #02645, [address], [place], [id number], 5 16:32:33 Zithromax Z-Raphael 250 mg tablet 2024 025 [facility] #06789, [address], [place], [id number], 5 15:29:15 omeprazole 40 mg capsule,del ayed release 2023 024 [facility] #57446, [address], [place], [id number], 4 12:41:04 clonidine 0.2 mg/24 hr weekly transdermal patch 2023 024 [facility] #59491, [address], [place], [id number], 5 11:35:48 triamterene 37.5 mg-hydrochl orothiazide 25 mg tablet 2023 024 [facility] #39389, [address], [place], [id number], 4 12:41:00 paroxetine 40 mg tablet 2023 [facility] #88794, [address], [place], [id number], 4 12:41:01 Patient TargetsNo targets recorded. Patient InstructionsNo instructions recorded. Reason for Referral None Reported. Results Created Date Observation Date Name Description Value Unit Range Abnormal Flag Note LastModifiedBy Organization Detail LastModifiedTime 10/28/1910/30/2023 LIPID PANEL , STAND FRANDY cholesterol, total 209 mg/dL <200 high Not Available [employer] [address] [address] [place], [address], 10/30/2023 04:27:01 10/28/1910/30/2023 LIPID PANEL , STAND FRANDY HDL cholesterol 69 mg/dL > or = 50 normal Not Available [facility] [address] [address] [place], [address], 10/30/2023 04:27:01 10/28/1910/30/2023 LIPID PANEL , STAND FRANDY triglyceride s 274 mg/dL <150 high If a non-f astin g speci men was colle cted, consi brian repea t trigl yceri de testi ng on a fasti ng speci men if clini stephenie indic ated. Robert arndt et al. J. of Clin. Lipid ol. 2015; 9:129 -169. Not Available [facility] [address] [address] [place], [address], 10/30/2023 04:27:01 10/28/1910/30/2023 LIPID PANEL , STAND FRANDY LDL-choleste rol 101 mg/dL _(aleksandr c) high Refer ence range : <100 Janna able range <100 mg/dL for prima ry preve ntion ; <70 mg/dL for patie nts with CHD or diabe tic patie nts with > or = 2 CHD risk facto rs. LDL-C is now calcu lated using the Tiffany n-Hop kins yeny lutz n, which is a valid ated novel metho d provi laine rosmery r accur acy than the Fried yashira equat ion in the estim ation of LDL-C . Tiffany romero SS et al. MORALES. 2013; 310(1 9): 2061- 2068 (http ://ed ucati on.Qu estDi Eposs. com/f aq/FA Q164) Not Available [address], [address], 10/30/2023 04:27:01 10/28/19 24 10/30/2023 LIPID PANEL , STAND FRANDY chol/HDLC ratio 3.0 (calc ) <5.0 normal Not Available [address], [address], 10/30/2023 04:27:01 10/28/19 24 10/30/2023 LIPID PANEL , STAND FRANDY non HDL cholesterol 140 mg/dL _(aleksandr c) <130 high For patie nts with diabe franko plus 1 major ASCVD risk facto r, treat ing to a non-H DL-C goal of <100 mg/dL (LDL- C of <70 mg/dL ) is consi dered a thera pebest c optio n. Not Available [employer] [address] [address] [place], [address], 10/30/2023 04:27:01 10/28/19 24 10/30/2023 COMPR EHENS ZELDA METAB OLIC PANEL glucose 81 mg/dL 65-99 normal Fasti ng refer ence inter jayne Not Available [facility] [address] [address] [place], [address], 10/30/2023 04:27:02 10/28/19 24 10/30/2023 COMPR EHENS ZELDA METAB OLIC PANEL urea nitrogen (BUN) 17 mg/dL 7-25 normal Not Available [address], [address], 10/30/2023 04:27:02 10/28/19 24 10/30/2023 COMPR EHENS ZELDA METAB OLIC PANEL creatinine 0.81 mg/dL 0.50-0 .99 normal Not Available [address], [address], 10/30/2023 04:27:02 10/28/19 24 10/30/2023 COMPR EHENS ZELDA METAB OLIC PANEL eGFR 89 mL/mi n/1.7 3m2 > or = 60 normal Not Available [address], [address], 10/30/2023 04:27:02 10/28/19 24 10/30/2023 COMPR EHENS ZELDA METAB OLIC PANEL BUN/creatini ne ratio SEE NOTE: (calc ) 6-22 Not Repor quentin: BUN and Creat inine are withi n refer ence range . Not Available [address], [address], 10/30/2023 04:27:02 10/28/19 24 10/30/2023 COMPR EHENS ZELDA METAB OLIC PANEL sodium 139 mmol/ L 135-14 6 normal Not Available [address], [address], 10/30/2023 04:27:02 10/28/19 24 10/30/2023 COMPR EHENS ZELDA METAB OLIC PANEL potassium 4.6 mmol/ L 3.5-5. 3 normal Not Available [address], [address], 10/30/2023 04:27:02 10/28/19 24 10/30/2023 COMPR EHENS ZELDA METAB OLIC PANEL chloride 99 mmol/ L 98-110 normal Not Available [address], [address], 10/30/2023 04:27:02 10/28/19 24 10/30/2023 COMPR EHENS ZELDA METAB OLIC PANEL carbon dioxide 30 mmol/ L 20-32 normal Not Available [address], [address], 10/30/2023 04:27:02 10/28/19 24 10/30/2023 COMPR EHENS ZELDA METAB OLIC PANEL calcium 10.2 mg/dL 8.6-10 .2 normal Not Available [address], [address], 10/30/2023 04:27:02 10/28/19 24 10/30/2023 COMPR EHENS ZELDA METAB OLIC PANEL protein, total 7.7 g/dL 6.1-8. 1 normal Not Available [address], [address], 10/30/2023 04:27:02 10/28/19 24 10/30/2023 COMPR EHENS ZELDA METAB OLIC PANEL albumin 4.8 g/dL 3.6-5. 1 normal Not Available [address], [address], 10/30/2023 04:27:02 10/28/19 24 10/30/2023 COMPR EHENS ZELDA METAB OLIC PANEL globulin 2.9 g/dL_ (calc ) 1.9-3. 7 normal Not Available [address], [address], 10/30/2023 04:27:02 10/28/19 24 10/30/2023 COMPR EHENS ZELDA METAB OLIC PANEL albumin/glob ulin ratio 1.7 (calc ) 1.0-2. 5 normal Not Available [address], [address], 10/30/2023 04:27:02 10/28/19 24 10/30/2023 COMPR EHENS ZELDA METAB OLIC PANEL bilirubin, total 0.4 mg/dL 0.2-1. 2 normal Not Available [address], [address], 10/30/2023 04:27:02 10/28/19 24 10/30/2023 COMPR EHENS ZELDA METAB OLIC PANEL alkaline phosphatase 94 U/L 31-125 normal Not Available [facility] [address], [address], 10/30/2023 04:27:02 10/28/19 24 10/30/2023 COMPR EHENS ZELDA METAB OLIC PANEL AST 22 U/L 10-35 normal Not Available [address], [address], 10/30/2023 04:27:02 10/28/19 24 10/30/2023 COMPR EHENS ZELDA METAB OLIC PANEL ALT 16 U/L 6-29 normal Not Available [address], [address], 10/30/2023 04:27:02 10/28/19 24 10/30/2023 CBC (INCL UDES DIFF/ PLT) white blood cell count 7.9 thous and/u L 3.8-10 .8 normal Not Available [address], [address], 10/30/2023 04:27:03 10/28/19 24 10/30/2023 CBC (INCL UDES DIFF/ PLT) red blood cell count 4.46 maryanne on/uL 3.80-5 .10 normal Not Available [address], [address], 10/30/2023 04:27:03 10/28/19 24 10/30/2023 CBC (INCL UDES DIFF/ PLT) hemoglobin 14.1 g/dL 11.7-1 5.5 normal Not Available [address], [address], 10/30/2023 04:27:03 10/28/19 24 10/30/2023 CBC (INCL UDES DIFF/ PLT) hematocrit 42.3 % 35.0-4 5.0 normal Not Available [address], [address], 10/30/2023 04:27:03 10/28/19 24 10/30/2023 CBC (INCL UDES DIFF/ PLT) MCV 94.8 fL 80.0-1 00.0 normal Not Available [address], [address], 10/30/2023 04:27:03 10/28/19 24 10/30/2023 CBC (INCL UDES DIFF/ PLT) MCH 31.6 pg 27.0-3 3.0 normal Not Available [address], [address], 10/30/2023 04:27:03 10/28/19 24 10/30/2023 CBC (INCL UDES DIFF/ PLT) MCHC 33.3 g/dL 32.0-3 6.0 normal Not Available [address], [address], 10/30/2023 04:27:03 10/28/19 24 10/30/2023 CBC (INCL UDES DIFF/ PLT) RDW 11.8 % 11.0-1 5.0 normal Not Available [address], [address], 10/30/2023 04:27:03 10/28/19 24 10/30/2023 CBC (INCL UDES DIFF/ PLT) platelet count 296 thous and/u L 140-40 0 normal Not Available [address], [address], 10/30/2023 04:27:03 10/28/19 24 10/30/2023 CBC (INCL UDES DIFF/ PLT) MPV 10.1 fL 7.5-12 .5 normal Not Available [address], [address], 10/30/2023 04:27:03 10/28/19 24 10/30/2023 CBC (INCL UDES DIFF/ PLT) absolute neutrophils 5135 cells /uL 1500-7 800 normal Not Available [address], [address], 10/30/2023 04:27:03 10/28/19 24 10/30/2023 CBC (INCL UDES DIFF/ PLT) absolute lymphocytes 2133 cells /uL 850-39 00 normal Not Available [address], [address], 10/30/2023 04:27:03 10/28/19 24 10/30/2023 CBC (INCL UDES DIFF/ PLT) absolute monocytes 537 cells /uL 200-95 0 normal Not Available [address], [address], 10/30/2023 04:27:03 10/28/19 24 10/30/2023 CBC (INCL UDES DIFF/ PLT) absolute eosinophils 47 cells /uL 15-500 normal Not Available [address], [address], 10/30/2023 04:27:03 10/28/19 24 10/30/2023 CBC (INCL UDES DIFF/ PLT) absolute basophils 47 cells /uL 0-200 normal Not Available [address], [address], 10/30/2023 04:27:03 10/28/19 24 10/30/2023 CBC (INCL UDES DIFF/ PLT) neutrophils 65 % normal Not Available [address], [address], 10/30/2023 04:27:03 10/28/19 24 10/30/2023 CBC (INCL UDES DIFF/ PLT) lymphocytes 27.0 % normal Not Available [address], [address], 10/30/2023 04:27:03 10/28/19 24 10/30/2023 CBC (INCL UDES DIFF/ PLT) monocytes 6.8 % normal Not Available [address], [address], 10/30/2023 04:27:03 10/28/19 24 10/30/2023 CBC (INCL UDES DIFF/ PLT) eosinophils 0.6 % normal Not Available [facility] [address], [address], 10/30/2023 04:27:03 10/28/19 24 10/30/2023 CBC (INCL UDES DIFF/ PLT) basophils 0.6 % normal Not Available [address], [address], 10/30/2023 04:27:03 05/13/19 25 05/18/2024 LIPID PANEL , STAND FRANDY cholesterol, total 184 mg/dL <200 normal Not Available [address], [address], 05/18/2024 18:15:56 05/13/19 25 05/18/2024 LIPID PANEL , STAND FRANDY HDL cholesterol 82 mg/dL > or = 50 normal Not Available [address], [address], 05/18/2024 18:15:56 05/13/19 25 05/18/2024 LIPID PANEL , STAND FRANDY triglyceride s 121 mg/dL <150 normal Not Available [address], [address], 05/18/2024 18:15:56 05/13/1905/18/2024 LIPID PANEL , STAND FRANDY LDL-choleste rol 80 mg/dL _(aleksandr c) normal Refer ence range : <100 Janna able range <100 mg/dL for prima ry preve ntion ; <70 mg/dL for patie nts with CHD or diabe tic patie nts with > or = 2 CHD risk facto rs. LDL-C is now calcu lated using the Tiffany n-Hop kins calcu nelda n, which is a valid ated novel metho d provi ding rosmery r accur acy than the Fried yashira equat ion in the estim ation of LDL-C . Tiffany romero SS et al. MORALES. 2013; 310(1 9): 2061- 2068 (http ://ed ucati on.Loylap. [employer]/f aq/FA Q164) Not Available [employer] [facility] [address] [place], [address], 05/18/2024 18:15:56 05/13/1905/18/2024 LIPID PANEL , STAND FRANDY chol/HDLC ratio 2.2 (calc ) <5.0 normal Not Available [employer] [facility] [address] [place], [address], 05/18/2024 18:15:56 05/13/1905/18/2024 LIPID PANEL , STAND FRANDY non HDL cholesterol 102 mg/dL _(aleksandr c) <130 normal For patie nts with diabe franko plus 1 major ASCVD risk facto r, treat ing to a non-H DL-C goal of <100 mg/dL (LDL- C of <70 mg/dL ) is consi jhond a thermarta pebest c optio n. Not Available [employer] [facility] [address] [address] [place], [address], 05/18/2024 18:15:56 05/13/1905/18/2024 FSH AND LH FSH 62.4 mIU/m L normal Refer ence Range Folli cular Phase 2.5-1 0.2 Mid-c ycle Peak 3.1-1 7.7 Lutea l Phase 1.5- 9.1 Postm enopa usal 23.0- 116.3 Not Available [employer] [facility] [address] [place], [address], 05/18/2024 18:15:57 05/13/19 25 05/18/2024 FSH AND LH LH 32.3 mIU/m L normal Refer ence Range Folli cular Phase 1.9-1 2.5 Mid-C ycle Peak 8.7-7 6.3 Lutea l Phase 0.5-1 6.9 Postm enopa usal 10.0- 54.7 Not Available [employer] [address], [address], 05/18/2024 18:15:57 05/13/19 25 05/18/2024 ESTRO GENS, TOTAL , IA estrogens, total, ia 45 pg/mL Refer ence Range s for Total Estro gen: Folli cular Phase : 51-60 1 Lutea l Phase : 87-11 94 Postm enopa usal: < or = 214 Not Available [employer] [facility] [id number] [place] [address], [address], 05/18/2024 18:15:58 05/13/19 25 05/18/2024 TSH W/REF ALLISON TO FT4 TSH w/reflex to FT4 1.18 mIU/L normal Refer ence Range > or = 20 Years 0.40- 4.50 Pregn zelda Range s First trime ster 0.26- 2.66 Secon d trime ster 0.55- 2.73 Third trime ster 0.43- 2.91 Not Available [employer] [facility] [address] [place], [address], 05/18/2024 18:15:59 Result Notes None recorded. 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, [place], [address] , [place] [facility] 0 15:17:11 Divertic ulosis of colon 012375500 Active 2021 Jocelyne William MD Attn: Accounting ,[address] 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, [place], [address] , [place] [facility] 5 11:31:09 Benign essentia l hyperten thom 6524355 Active 2013 Location : None;Sev erity: Moderate ;Progres s: Stable;A dded By: Bekah Veras;Add to Current Problems : YES Not Available [facility] 7 11:31:29 Gastroes ophageal reflux disease 234445000 Active 2014 Location : None;Sev erity: Moderate ;Progres s: Stable;A dded By: Bekah Veras;Add to Current Problems : YES Not Available [facility] 7 11:31:30 Acute maxillar y sinusiti s 54425924 Completed 201401/14/2015 Location : None;Sev erity: Moderate ;Progres s: Stable;A dded By: Bekah Veras;Add to Current Problems : YES Not Available [facility] 7 11:31:30 Family planning surveill ance Completed 201512/05/2015 Location : None;Sev erity: Moderate ;Progres s: Stable;A dded By: Bekah Veras;Add to Current Problems : NO Not Available [facility] 7 11:31:30 Headache 11926062 Completed 201501/13/2016 Location : None;Sev erity: Moderate ;Progres s: Stable;A dded By: Bekah Veras;Add to Current Problems : NO Not Available [facility] 7 11:31:30 Elevated blood-pr essure reading without diagnosi s of hyperten thom 705748489 Completed 201311/12/2013 Location : None;Sev erity: Moderate ;Progres s: Stable;A dded By: Sunitha Coley i;Marta dd to Current Problems : NO Not Available [facility] 7 11:31:30 Generali zed anxiety disorder 31904972 Active 2013 Location : None;Sev erity: Moderate ;Progres s: Stable;A dded By: Jeannette Sauceda; Add to Current Problems : NO Not Available [facility] 7 11:31:46 Transien t insomnia 468800677 Completed 201306/11/2013 Location : None;Sev erity: Moderate ;Progres s: Stable;A dded By: Jeannette Sauceda; Add to Current Problems : NO Not Available [facility] 7 11:31:46 Influenz a with respirat ory manifest ation other than pneumoni a Completed 201305/30/2014 Location : None;Sev erity: Moderate ;Progres s: Stable;A dded By: Fausto Dwyer;Add to Current Problems : YES Not Available [facility] 7 11:31:46 Allergic urticari a 56523099 Completed 201306/12/2014 Location : None;Sev erity: Moderate ;Progres s: Stable;A dded By: Fausto Dwyer;Add to Current Problems : YES Not Available [facility] 7 11:31:46 Acute sinusiti s 74892157 Completed 201305/01/2014 Location : None;Sev erity: Moderate ;Progres s: Stable;A dded By: Gina Blank;Add to Current Problems : YES Not Available [facility] 7 11:31:46 Angioede ma 22726197 Completed 201405/17/2014 Location : None;Sev erity: Moderate ;Progres s: Stable;A dded By: Jocelyne William;Add to Current Problems : YES Not Available [facility] 7 11:31:46 Cough 82573141 Completed 201207/07/2012 Location : None;Sev erity: Moderate ;Progres s: Stable;A dded By: Caty Leyva;Add to Current Problems : NO Not Available [facility] 7 11:31:46 Acute upper respirat ory infectio n 29411602 Completed 201207/07/2012 Location : None;Sev erity: Moderate ;Progres s: Stable;A dded By: Yue Ireland;Add to Current Problems : NO Not Available [facility] 7 11:31:46 Acute upper respirat ory infectio n of multiple sites Completed 201507/16/2015 Location : None;Sev erity: Moderate ;Progres s: Stable;A dded By: Yue Ireland;Add to Current Problems : NO Not Available [facility] 7 11:31:46 Otitis media 83604526 Active 2015 Location : None;Sev erity: Moderate ;Progres s: Stable;A dded By: Yue Ireland;Add to Current Problems : YES Not Available [facility] 7 11:31:46 Tobacco dependen ce syndrome 25421942 Completed 201509/18/2015 Location : None;Sev erity: Moderate ;Progres s: Stable;A dded By: Yue Ireland;Add to Current Problems : YES Not Available [facility] 7 11:31:46 Acute bronchit is 74539534 Completed 201509/18/2015 Location : None;Sev erity: Moderate ;Progres s: Stable;A dded By: Yue Ireland;Add to Current Problems : YES Not Available [facility] 7 11:31:47 Essentia l hyperten thom 99700306 Completed 201406/15/2015 Location : None;Sev erity: Moderate ;Progres s: Stable;A dded By: Angelina George;Add to Current Problems : YES Not Available [facility] 11:31:47 Dizzines s and giddines s 250670216 Completed 201501/11/2021 Location : None;Sev erity: Moderate ;Progres s: Stable;A dded By: Gina Blank;Add to Current Problems : YES MANJU Zelaya Attn: Accounting ,[address] [place], [address] , [facility] 11:27:19 Psychoge tim headache 77813498 Completed 201203/05/2013 Location : None;Sev erity: Moderate ;Progres s: Stable;A dded By: Bekah Veras;Add to Current Problems : NO Not Available [facility] 11:31:47 Tobacco dependen ce syndrome 67562392 Completed 201203/05/2013 Location : None;Sev erity: Moderate ;Progres s: Stable;A dded By: Bekah Veras;Add to Current Problems : NO Not Available [facility] 11:31:47 Problem Notes None recorded. Procedures Surgical History Date Name Laterality Status Provider Name and Address Organization Details Recorded Time 02/08/20 22 excision of bilateral breasts completed MANJU Zelaya Attn: Accounting, [place], [address], [facility] 10/28/2023 12:41:45 04/15/18 83 Tonsillectomy completed Sunitha Brandon [facility] 10/18/2016 17:22:10 Imaging Results None recorded. Procedure Notes None recorded. Medical Equipment None Reported. Allergies Allergen ID Allergen Name Allergen Category Reaction Reaction Severity Criticality Documentation Date Start Date Code Code System Note Provider Name and Address Organization Details Recorded Time 49406 Lexapro medicatio n Not available Not available Not available 04/18/20162012 92879 1 RxNorm Sever ity: Moder ate; Comme nt: Aller gy Type: Aller gy; Not Available [facility] 03:50:06 02970 lisinopri l medicatio n angioedem a moderate Not available 04/18/20162014 76835 RxNorm React ion: angio edema ;Annalise rity: Moder ate; Comme nt: Aller gy Type: Aller gy; Not Available [facility] 7 03:50:06 Medications Name Sig Start Date Stop Date Status Note LastModified by Organization Details LastModified Time Prescriptio n - Prior Authorizati on Request TAKE 1 TABLET BY MOUTH DAILY DIRECTED 07/17 completed Not Available Not Available Not Available buspirone 5 mg tablet 11/13 completed Not Available Not Available Not Available clonidine 0.1 mg/24 hr weekly transdermal patch APPLY 1 PATCH TOPICALLY TO THE SKIN 1 TIME A WEEK 11/13 completed Not Available Not Available Not Available azithromyci n 250 mg tablet TAKE 2 TABLETS (500 MG) BY ORAL ROUTE ONCE DAILY FOR 1 DAY THEN 1 TABLET (250 MG) BY ORAL ROUTE ONCE DAILY FOR 4 DAYS 09/18 completed Not Available Not Available Not Available clonidine 0.2 mg/24 hr weekly transdermal patch APPLY 1 PATCH TOPICALLY TO THE SKIN EVERY WEEK DIRECTED 05/13 completed Not Available Not Available Not Available fluconazole 150 mg tablet Take 1 tablet today and repeat second tablet in 72 hours. 09/23 completed Not Available Not Available Not Available hydrocodone 5 mg-acetamin ophen 325 mg tablet TAKE 1 TABLET BY MOUTH EVERY 6 HOURS NEEDED FOR PAIN 09/10 completed Not Available Not Available Not Available lisinopril 20 mg tablet one PO daily 04/16 completed RxNor m: [id number] 7;All ow Subst ituti on: True Not Available Not Available Not Available prednisone 20 mg tablet TAKE 2 TABLETS BY MOUTH DAILY FOR 5 DAYS 10/27 completed Not Available Not Available Not Available omeprazole 40 mg capsule,del ayed release TAKE 1 CAPSULE BY MOUTH EVERY DAY active Not Available Not Available No t Available amoxicillin 500 mg tablet TAKE 2 TABLETS BY MOUTH EVERY 12 HOURS FOR 7 DAYS 10/27 completed Not Available Not Available Not Available ondansetron 8 mg disintegrat ing tablet 09/10 completed Not Available Not Available Not Available cefadroxil 500 mg capsule 10/27 completed Not Available Not Available Not Available oxycodone-a cetaminophe n 5 mg-325 mg tablet TAKE 1 TABLET BY MOUTH EVERY 4 HOURS NEEDED FOR PAIN 10/27 completed Not Available Not Available Not Available alprazolam 0.5 mg tablet TAKE 1-2 TABLETS BY MOUTH EVERY DAY active Not Available Not Available No t Available amoxicillin 875 mg tablet 1 tablet by mouth BID for 10 days. 12/22 completed RxNor m: [id number] 4;All ow Subst ituti on: True Not Available Not Available Not Available meclizine 25 mg tablet Take 1 tab po bid 01/03 completed RxNor m: [id number] 6;All ow Subst ituti on: True Not Available Not Available Not Available cephalexin 500 mg capsule TAKE 1 CAPSULE BY MOUTH EVERY 8 HOURS FOR 10 DAYS 05/13 completed Not Available Not Available Not Available paroxetine 20 mg tablet 12/23 completed Not Available Not Available Not Available esomeprazol e magnesium 40 mg capsule,del ayed release Take 1 capsule every day by oral route. 05/15 completed Not Available Not Available Not Available Cipro 500 mg tablet Take 1 tablet(s) by mouth q12h for 10 days 08/28 completed RxNor m: [id number] 0;All ow Subst ituti on: True Not Available Not Available Not Available triamterene 37.5 mg-hydrochl orothiazide 25 mg tablet TAKE 1 TABLET BY MOUTH EVERY DAY active Not Available Not Available No t Available diazepam 10 mg tablet active Not Available Not Available No t Available zolpidem 10 mg tablet TAKE 1 TABLET BY MOUTH EVERY NIGHT NEEDED FOR INSOMNIA active Not Available Not Available No t Available methylpredn isolone 4 mg tablets in a dose pack TAKE DIRECTED WITH FOOD 09/23 completed Not Available Not Available Not Available SSD 1 % topical cream 01/11 completed Not Available Not Available Not Available paroxetine 40 mg tablet TAKE 1 TABLET BY MOUTH EVERY DAY active Not Available Not Available No t Available Pepcid AC 10 mg tablet take one daily 04/13 completed RxNor m: 18399 2;All ow Subst ituti on: True Not Available Not Available Not Available fluticasone propionate 50 mcg/actuati on nasal spray,suspe nsion [place] 2 sprays every day by intranasa l route. 01/11 completed Not Available Not Available Not Available Ortho Tri-Cyclen (28) 0.18 mg(7)/0.215 mg(7)/0.25 mg(7)-0.035 mg tablet TAKE 1 TABLET BY MOUTH DAILY DIRECTED 07/17 completed Not Available Not Available Not Available amoxicillin 875 mg-potassiu m clavulanate 125 mg tablet TAKE 1 TABLET BY MOUTH EVERY 12 HOURS FOR 7 DAYS 09/23 completed Not Available Not Available Not Available ciprofloxac in 0.3 %-dexametha sone 0.1 % ear drops,suspe nsion SHAKE LIQUID AND INSTILL 4 DROPS TO AFFECTED EAR TWICE DAILY FOR 7 DAYS 10/27 completed Not Available Not Available Not Available bupropion HCl XL 150 mg 24 hr tablet, extended release 11/13 completed Not Available Not Available Not Available Albuterol Sulfate HFA 90 mcg/Actuati on aerosol inhaler 2 puffs prn q 4-6 hrs 10/17 completed RxNor m: 79705 3;All ow Subst ituti on: True Not Available Not Available Not Available Vitals Date Recorded Body height Body mass index (BMI) Body weight Body temperature Oxygen saturation Oxygen saturation in Arterial blood by Pulse oximetry Heart rate Systolic And Diastolic Provider Name and Address Organization Details Last Updated DateTime 5 161.93 cm 23.9 kg/m2 09030.4 5 g 97.5 [degF] 99 % 99 % 89 /min 128/89 mm[Hg] Sravani Solis [place] [facility] 5 11:07:34 Date Recorded Body height Body mass index (BMI) Body weight Oxygen saturation Oxygen saturation in Arterial blood by Pulse oximetry Heart rate Body temperature Systolic And Diastolic Provider Name and Address Organization Details Last Updated DateTime 5 161.93 cm 24.4 kg/m2 17641.5 2 g 100 % 100 % 92 /min 97.9 [degF] 116/78 mm[Hg] Lydia Gaona MA [facility] 5 14:17:24 Date Recorded Heart rate Provider Name an d Address Organization Details Last Updated DateTime 09/18/2024 90 /min Mahendra DiorC Attn: Accounting,[address] [place], [address], [facility] 09/18/2024 15:31:30 Date Recorded Body height Body mass index (BMI) Body weight Body temperature Oxygen saturation Oxygen saturation in Arterial blood by Pulse oximetry Systolic And Diastolic Provider Name and Address Organization Details Last Updated DateTime 5 161.93 cm 23.9 kg/m2 73509.8 5 g 97.9 [degF] 98 % 98 % 108/76 mm[Hg] Yue Ayala MA [facility] 5 15:20:23 Date Recorded Body height Body mass index (BMI) Provider Name and Address Organization Details Last Updated DateTime 10/03/2022 161.29 cm 25.6 kg/m2 MANJU Zelaya Attn: Accounting,[address] [place], [address], [facility] 10/03/2022 10:52:01 Date Recorded Body weight Body temperature Oxygen saturation Oxygen saturation in Arterial blood by Pulse oximetry Heart rate Heart rate Systolic And Diastolic Provider Name and Address Organization Details Last Updated DateTime 3 79456.0 8 g 97.5 [degF] 99 % 99 % 198 /min 108 /min 110/80 mm[Hg] Misa Art MA [facility] 3 10:27:27 Date Recorded Body height Body mass index (BMI) Body weight Oxygen saturation Oxygen saturation in Arterial blood by Pulse oximetry Heart rate Body temperature Systolic And Diastolic Provider Name and Address Organization Details Last Updated DateTime 4 161.93 cm 25.1 kg/m2 31613.8 9 g 98 % 98 % 85 /min 98.1 [degF] 113/79 mm[Hg] Misa Art MA [facility] 4 11:46:36 Social History Question Answer Notes LastModified by Organizat ion Details LastModified Time Tobacco Smoking Status Former Smoker Misa Art MA null, [place] - [facility] 05/28/2022 11:35:37 Do You Have An Advance Directive? No Information not available 11/13/2021 Are You Blind Or Do You Have Difficulty Seeing? No Information not available 11/13/2021 What Is Your Level Of Caffeine Consumption? Moderate Information not available 01/11/2021 Are You Deaf Or Do You Have Serious Difficulty Hearing? No Information not available 11/13/2021 What Type Of Diet Are You Following? REGULAR Information not available 11/13/2021 What Was The Date Of Your Most Recent Tobacco Screening? 09/18/2024 [email or web address] Information not available 09/18/2024 What Is Your Relationship Status? Information not available 11/13/2021 Do You Use Your Seat Belt Or Car Seat Routinely? Yes Information not available 11/13/2021 How Much Tobacco Do You Smoke? No Pt Said That She Only Has A Couple A Day Information not available 05/28/2022 Sex: Female Functional Status Question Answer Note LastModified by Organizat ion Details LastModified Time Do you use any illicit or recreational drugs? No [email or web address] Information not available 05/15/2021 What is your level of alcohol consumption? Moderate Information not available 01/11/2021 Are you currently employed? Yes Information not available 11/13/2021 Are you able to care for yourself? Yes Information n ot available 11/13/2021 What is your exercise level? Moderate Information not available 11/13/2021 Mental Status Question Answer Note LastModified by Organization D etails LastModified Time Do you feel stressed (tense, restless, nervous, or anxious, or unable to sleep at night)? [id number] Information not available 11/13/2021 Family History Relationship Description Onset Age of this Age Resolved Age Notes LastModified by Organization Details LastModified Time Mother Heart disease [email or web address] Not available 02/2017 13:37:41 Mother Hypertensive disorder [email or web address] Not available 02/2017 13:37:47 Maternal Grandfather Malignant tumor of colon [email or web address] Not available 09/2016 17:22:53 Paternal Aunt Malignant tumor of pancreas [email or web address] Not available 09/2016 17:23:12 Paternal Aunt Malignant tumor of breast from breast cancer [email or web address] Not available 10/18/2016 17:23:37 Notes:Father - GBM @ 63; Medical History Condition Response Anxiety Disorder Y Acid Reflux (GERD) Y High Blood Pressure Y Gynecological History Statement/Question Response Menses Monthly N Date of Last Mammogram Obstetrics History GPAL:G 0 P 0 0 0 0 Immunizations Vaccine Type Date Status Note Provider Nam e and Address Organization Details Recorded Time COVID-19, mRNA, LNP-S, PF, 30 mcg/0.3 mL dose 1 completed Jasmyne Petit [place], [place] [facility] 01/11/2021 11:04:20 COVID-19, mRNA, LNP-S, PF, 30 mcg/0.3 mL dose 1 completed Jasmyne Petit [place], [place] [facility] 01/11/2021 11:04:50 DTaP 6 completed MANJU Zelaya Attn: Accounting[address] [place], [address], [place] [facility] 10/28/2023 12:42:27 DTaP 0 completed MANJU Zelaya Attn: Accounting,[address] [facility], [place], [address], [place] [facility] 10/28/2023 12:42:27 DTaP 7 completed MANJU Zelaya Attn: Accounting,[address] [facility], [place], [address], [place] [facility] 10/28/2023 12:42:27 DTaP 5 completed MANJU Zelaya Attn: Accounting,[address] [facility], [place], [address], [place] [facility] 10/28/2023 12:42:27 DTaP 5 completed MANJU Zelaya Attn: Accounting[address] [place], [address], [place] [facility] 10/28/2023 12:42:27 Tdap 9 completed Not Available [facility] 05/02/2019 02:45:31 DTP 5 completed Not Available [facility] 04/18/2016 05:18:15 DTP 5 completed Not Available [facility] 04/18/2016 05:18:15 DTP 6 completed Not Available [facility] 04/18/2016 05:18:15 DTP 7 completed Not Available [facility] 04/18/2016 05:18:15 DTP 0 completed Not Available [facility] 04/18/2016 05:18:15 MMR 7 completed Not Available [facility] 04/18/2016 05:18:16 MMR 0 completed Not Available [facility] 04/18/2016 05:18:16 Td (adult), 2 Lf tetanus toxoid, preservative free, adsorbed 5 completed MANJU Zelaya Attn: Accounting[address] [place], [address], [place] [facility] 10/28/2023 12:42:27 Td (adult), 2 Lf tetanus toxoid, preservative free, adsorbed 0 completed MANJU Zelaya Attn: Accounting[address] [place], [address], [place] [facility] 10/28/2023 12:42:27 TST-PPD intradermal 6 completed Not Available [facility] 04/18/2016 05:18:16 OPV 5 completed Not Available [facility] 04/18/2016 05:18:16 OPV 7 completed Not Available [facility] 04/18/2016 05:18:17 OPV 6 completed Not Available [facility] 04/18/2016 05:18:17 OPV 0 completed Not Available [facility] 04/18/2016 05:18:17 Past Encounters Encounter ID Performer Location Encounter Start Date Encounter Closed Date Diagnosis/Indication Diagnosis SNOMED-CT Code Diagnosis ICD10 Code Diagnosis Note [id number] Bekah Veras MD [facility] [address] [place] [address] 04/25/2016 09:34:08 04/25/2016 16:41:56 Gynecologic examination 97444917 Z01.419 Screening for malignant neoplasm of breast 227917197 Z12.31 Uses oral contraception 9027034 Z30.41 Benign ess ential hypertension 9381190 I10 Gastroesop hageal reflux disease 213696487 K21.9 [id number] Bekah Veras MD [facility] [address] [place] [address] 07/17/2017 11:58:38 07/17/2017 14:18:46 Generalized anxiety disorder 20332297 F41.[address] Richardson Gastroesop hageal reflux disease 387984190 K21.9 Essential hypertension 60876225 I10 [id number] Bekah Veras MD [facility] [address] [place] [address] 10/08/2017 11:40:20 10/09/2017 10:12:17 Left lower quadrant pain 059730880 R10.32 [id number] Damir Dwyer MD [facility] [address] [place] [address] 01/10/2018 11:36:27 01/10/2018 12:54:09 Smoker 53475032 F17.200 quitting discussed. Acute sinusitis 73544215 J01.90 [id number] Bekah Veras MD [facility] [address] [place] [address] 09/03/2018 10:52:36 09/03/2018 12:27:49 Benign essential hypertension 6137015 I10 Perimenopa usal disorder 856851460 N95.9 Gastroesop hageal reflux disease without esophagitis 646954184 K21.9 Administra tion of diphtheria, pertussis, and tetanus vaccine 481245616 Z23 [id number] Bekah Veras MD [facility] [address] [place] [address] 10/23/2018 16:15:20 10/23/2018 17:16:43 Acute maxillary sinusitis 14324143 J01.00 Cigarette smoker 5041624 7 F17.210 Perimenopa usal disorder 449565068 N95.9 [id number] Bekah Veras MD [facility] [address] [place] [address] 06/18/2019 14:47:04 06/19/2019 10:31:06 Acute maxillary sinusitis 91614650 J01.00 [id number] Bekah Veras MD [facility] [address] [place] [address] 11/16/2019 13:49:16 11/16/2019 16:29:01 Acute maxillary sinusitis 88588127 J01.00 Perimenopa usal disorder 912719052 N95.9 [id number] Bekah Veras MD [facility] [address] [place] [address] 12/09/2019 13:27:27 12/09/2019 17:15:20 Cigarette smoker 01127278 F17.210 Perimenopa usal disorder 008795078 N95.[address] Richardson and is zolpidem and alprazolam !! [id number] Bekah Veras MD [facility] [address] [place] [address] 12/24/2019 09:34:27 12/28/2019 13:15:29 Benign essential hypertension 6936333 I10 [id number] Bekah Veras MD [facility] [address] [place] [address] 04/25/2020 13:32:04 04/26/2020 12:49:34 Benign essential hypertension 1078484 I10 Gastroesop hageal reflux disease without esophagitis 509809820 K21.9 [id number] OZZY Vazquez [facility] [address] [place] [address] 05/26/2020 15:02:18 05/27/2020 11:59:32 Sinusitis 12135752 J32.9 Most likely viral. Informed that ABT will not help symptoms and most viral illness last up to 14 days. Typically treat symptoms with OTC meds. If she get worse, developes fever, or lasting longer than 7-14 days, she can consider filling ABT [id number] Bekah Veras MD [facility] [address] [place] [address] 01/11/2021 10:38:42 01/11/2021 16:27:21 Perimenopausal disorder 139224098 N95.9 Benign ess ential hypertension 9794166 I10 great, will have fasting lab done at [facility]. Gastroesop hageal reflux disease 041790785 K21.9 if no better in 2 weeks, consider referral for EGD. Will change from omeprazole to nexium, check CXR. Chest pain 29865744 R07. 9 Screening for malignant neoplasm of breast 501023752 Z12.39 [id number] Bekah Veras MD [facility] [address] [place] [address] 05/15/2021 14:25:50 05/15/2021 17:31:25 Benign essential hypertension 4780515 I10 Gastroesop hageal reflux disease 427215885 K21.9 Mixed anxi ety and depressive disorder 911732237 F41.8 [id number] Bekah Veras MD [facility] [address] [place] [address] 11/13/2021 16:38:34 11/15/2021 09:47:30 Benign essential hypertension 0146613 I10 Mixed anxi ety and depressive disorder 269401119 F41.8 Gastroesop hageal reflux disease without esophagitis 599405716 K21.9 [id number] Phi Martin MD [facility] [address] [place] [address] 05/28/2022 11:19:51 05/28/2022 14:31:09 Gastroesophageal reflux disease without esophagitis 908664499 K21.9 no break through symptoms while on daily PPI, has been scoped, Dr. Delgado Benign ess ential hypertension 3137453 I10 perfect control today, using clonidine for hot flashes as well. Mixed anxi ety and depressive disorder 707760763 F41.8 stable, doing great, no changes BRCA2 gene mutation detected 481639232 Z15.01 silicone exchange for the tissue expanders. No issues with previous anesthesia . Cleared for surgery, faxed completed form, see copy [id number] Phi Martin MD [facility] [address] [place] [address] 10/03/2022 10:06:16 10/10/2022 12:51:05 Pre-surgery evaluation 261558407 Z01.818 cleared for surgery with out rosa field Reviewed all of her preop testing from 4 months ago, no need to repeat. See forms. Breasts asymmetrical 271 370185 N64.59 History of bilateral breast reconstruction 3554996166 0614717 Z98.785 [id number] Phi Martin MD [facility] [address] [place] [address] 10/28/2023 11:30:24 10/29/2023 09:47:03 Benign essential hypertension 8338664 I10 perfect control today, using clonidine for hot flashes as well. Will update labs and send refills Gastroesop hageal reflux disease without esophagitis 283673203 K21.9 no break through symptoms while on daily PPI, has been scoped, Dr. Delgado Mixed anxi ety and depressive disorder 698548637 F41.8 stable, doing great, no changes Adult heal th examination 745253354 Z00.00 BRCA gene, still pending right ovary removal, intended in the future. Preparing for her third breast surgery due to left implant movement, in November. Utd on vaccines, colon cancer screening, and cervical cancer screening, (we don't have her last pap on record) [id number] Jocelyne William MD [facility] [address] [place] [address] 05/13/2024 10:51:57 05/14/2024 09:24:30 Benign essential hypertension 0548680 I10 borderline today, she will purchase BP cuff at home and let me know if >140/90 will change her dyazide to CCB for better BP control. Perimenopa usal disorder 504463179 N95.9 really handling existing hot flashes off of the clonidine just fine, will reach out if this changes. Will consider BP med change first and then Veozah second if needed. Estrogen is contraindi cated due to her breast, ovary and pancreas cancer risk with gene mutation. Has had partial hysterecto my and bilateral mastectomy electively for prevention . Needs last ovary removed. Will confirm full menopause. Hypertriglyceridemia 302 429136 E78.1 not fasting last lab draw, fasting today. Menopausal flushing 1984 68670 N95.1 controlled currently off of the clonidine patch, using estroven otc and desires no other changes or tx for now. [id number] Jocelyne William MD [facility] [address] [facility] [address] [place] [address] 09/10/2024 14:09:17 09/11/2024 13:10:31 Viral upper respiratory tract infection 845287891 J06.9 - Pt to start abx today.-Enc ouraged pt to increase water intake, use a humidifier /vaporizer , or homeopathi c remedies such as warm tea or honey.-marley e IBU or tylenol for pain/heada brenda- Patient encourage to monitor symptoms and seek emergency medical care if she develops difficulty breathing, chest pain or pressure, or any concerning symptoms- Pt to f/u if symptoms worsen or do not improve in 2-3 days. [id number] Jocelyne William MD [facility] [address] [place] [address] 09/18/2024 14:59:24 09/21/2024 09:42:48 Viral upper respiratory tract infection 776661775 J06.9 -will finish augmentin and ADD in a steroid dose pack to help with inflammati on.-if no improvemen t will send an ENT referral-- pt to call. Health Concerns Section Related Observation LastModified by Organization Detai ls LastModified Time None Recorded Concern Status LastModified by Organization Details LastModified Time None Recorded Advance Directives Directive N: Payers Insurance Date Sequence Insurance Name Policy Number Policy Ji Covered Member ID Ji Member ID Guarantor Name 09/21/2024 1 [facility] Hayde Zepeda [id number] Hayde Zepeda 05/13/2024 1 [employer] [id number] Mark Zepeda [id number] Hayde Luis Miguel Zepeda Notes Date Note Type Note Provider Name and Address Organization Details Recorded Time 10/03/2022 text/html clonidine is for hot flashes. No complaints. Never any issues with anesthesia other than post surgical headache.Having lipo from belly and fat redistribution in breasts.NO EKG needed due to age per anesthesia. Labs normal preop IN May. REviewed again. MANJU Zelaya Attn: Accounting, [address] [facility], [place], [address], [facility] 10/09/2022 13:22:55 10/28/2023 text/html still has right ovary is planning for removal in the near future as well. Sees OB in November, Dr. Tran. Preparing for her third breast reconstruction due to leakage and movement of her left implant. Referred to new plastic surgeon due to previous provider leaving the area. No complaints at all. MANJU Zelaya Attn: Accounting, [facility], [place], [address], [facility] 10/28/2023 22:26:01 05/13/2024 text/html Hypertension F/UReported bypatient.Associated Symptoms:no dizziness; no lightheadedness; no chest pain; no shortness of breath; no palpitations; no edema; no calf pain with exertion Lifestyle:regular exercise; limiting/avoiding salt Medications:taking medications as directed; no side effects from medicationNotes:has been off of the patches for a week. BPs have been good. ON paxil for mental health and has helped with hot flashes. Also on Estroven and also has helped. Eun here and there, no cigarette smoking any more.MenopauseReported bypatient.Quality:nigh t sweats; hot flashes 1-3 times/day Severity:moderate Duration:brief Context:no menses for over 1 year Alleviating Factors:traditional HRT Aggravating Factors:heat; stress Associated Symptoms:no abdominal pain; no pelvic pain; no abnormal bleeding; no vaginal discharge; no dysuria; no dispareunia; no changes in bowel function; no fever; no vaginal dryness; no irritability; no depression; no anxiety; no skin changes; no loss of libido; no changes in urinationNotes:uterus and tubes out, ovary remains. MANJU Zelaya Attn: Accounting[address] [place], [address], [facility] 05/13/2024 13:45:30 09/10/2024 text/html Sinusitis/Allerg yRepor quentin bypatient.Location:[facility] Associated Symptoms:no nasal discharge; no fever; no weight loss; no hemoptysis; no hematemesis; no difficulty breathing; no feeling of strangulation; no nausea or vomiting; no headache; no facial pain; no sinus pain; no sore throat; no thick phlegm in throat; not constantly clearing the throat; no nasal itching; no eye itching; no pain behind the eyes; no skin itching;nasal passage blockage bilaterally;ear fullness; hoarseness, achy Onset/Timing:gradual onset; initially started 3weeks ago Quality:no pain; no itching; no throbbing; minimal discomfort; improving;weak voice;hoarseness;conge sted Duration:long standing; continuous; constant Severity:no pain; no frequent breathing through the mouth; no nosebleeds (epistaxis); no snoring;limits daily activities;interferenc e with work Context:no recent upper respiratory infection; no recent sick contacts; not worse with seasonal allergen exposure; not worse around animals; not worse around pollen; not worse around dust; not worse around molds; not worse with environmental exposure; not worse when mowing grass; not worse with certain foods; not worse with odors; possible sinus infection Risk Factors:no current smoking or tobacco use; no history of smoking; no increased stress; no family history of allergies; no history of nasal trauma; no allergy to aspirin; no history of nasal polyps; no history of asthma; no chemotherapy; no DM; no HIV; no immunodeficiency Alleviating factors:nothing gives relief Aggravating factors:not worse with change in medication; not worse during an upper respiratory infection (a cold); not worse when allergies are active OZZY Dior Attn: Accounting[address] [place], [address], [facility] 09/10/2024 14:35:27 09/18/2024 text/html Ear Pain/InfectionReported bypatient.Location:no earache; no pulling at the ear(s); no loss of hearing; no ringing in the ears; no pain in the jaw;ear fullness right; When pt blows her nose nothing comes out from the right side everything comes out of the left side. Onset/Timing:recurrent episode; initially started 3weeks ago; most current symptom ago Duration:ongoing fullness Quality:no pain; no itching; no discharge from the ears Severity:no fever; not interfering with social activities; no difficulty understanding speech; does not require tv, radio at high volume; able to sleep during episode;interfering with work Context:passed hearing screen; passed prior hearing test conducted at school; no recent upper respiratory infection; no recent sick contacts; no foreign travel; not related to trauma; not grinding teeth; no history of migraines; no recent surgery; no major life stressors; no known exposure to STD; does not attend daycare; no smokers in home; no siblings with similar problems Alleviating factors:oral antibiotics Aggravating factors:nothing makes it worse Associated Symptoms:no vertigo; no jaw popping or clicking; no temporomandibular joint disease; no nasal discharge;nasal congestion; Clear nasal drainage. Pt complains of persistant ear infection or ear pain. Pt was recently here for Upper Respiratory Virus and had a Z-pack. Completed the medication. She is also 5 days into the second antibiotic. Pt states she is still not feeling any better. Ear feels clogged and feeling like crap, voice is still not sounding right to her either. OZZY Dior Attn: Accounting[address] [place], [address], [facility] 09/18/2024 15:32:54 OBGyn Episode No OBEpisode recorded.
--- OUTSIDE RECORDS SUMMARY | 2024-10-21 11:40 | XMS_ITS | Clinical Summary ---
Author Organization [facility] Address [facility] [place] [address] Care Team Providers Care Nike Athlete Name Role Phone Nanette Veras MD Primary Care Provider [phone] Social History Tobacco Use Types Packs/Day Years Used Date Smoking Tobacco: Never Assessed Comments Unknown Sex and Gender Information Value Date Recorded Sex Assigned at Not on file Legal Sex Female 4:05 PM CDT Gender Identity Not on file Sexual Orientation Not on file Plan of Treatment Health Maintenance Due Date Last Done Comments Cervical Cancer Screening Pa p Smear (Age 30 to 64) Every 3 Years 1975 Colorectal Cancer Screening Colonoscopy (10 Years) 1975 Annual Physical 1978 Hepatitis C 1993 DTaP, Tdap and Td Vaccines ( 1 - Tdap) 1994 Hepatitis B Vaccines (1 of 3 - 19+ 3-dose series) 1994 Cervical Cancer Screening Pa p with HPV Testing (Age 30 to 64) Every 5 Years 2005 Cervical Cancer Screening with HPV 2005 Mammogram Screening 2015 COVID-19 Vaccine (2023-2 5 season) 2023 Meningococcal B Vaccine Aged Out No l onger eligible based on patient's age to complete this topic Meningococcal Vaccine Aged Out No betty tomy eligible based on patient's age to complete this topic Pneumococcal Vaccine: Pediat rics (0 to 5 Years) and At-Risk Patients (6 to 49 Years) Aged Out No longer eligible b ased on patient's age to complete this topic RSV Immunizations Under 20 Months Aged Out No longer eligible based on patient's age to complete this topic Care Teams Nike Athlete Relationship Specialty Start Date End Date Nanette Veras MD PCP - General 7/8/15
--- OUTSIDE RECORDS SUMMARY | 2024-10-21 11:40 | XMS_ITS | Encounter Summary ---
Author Organization [facility] Facility Care Team Providers Care Informatics Nurse Name Role Phone Nanette Veras MD Primary Care Provider [phone] Aurelia Physician Primary Care Provider [phone] Encounter Details Date Type Department Care Team (Latest Contact Info) Description 10/22/2016 Orders Only [facility] CLINCON[facility] ProviderAbbie MD [address] [place] [address] Social History Tobacco Use Types Packs/Day Years Used Date Smoking Tobacco: Never Assessed Comments Unknown Sex and Gender Information Value Date Recorded Sex Assigned at Not on file 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 Historical Provider Final Res ult documented in this encounter Visit Diagnoses Not on filedocumented in this encounter Care Teams Informatics Nurse Relationship Specialty Start Date End Date Nanette Veras MD [address] [place] [address] PCP - General Family Medicine 11/28/18 12/05/23 No, Physician PCP - General 12/06/23 documented as of this encounter
--- OUTSIDE RECORDS SUMMARY | 2024-10-21 11:40 | XMS_ITS | Encounter Summary ---
Author Organization [facility] Facility Care Team Providers Care Scroll Saw Operator Name Role Phone Nanette Veras MD Primary Care Provider [phone] Aurelia Physician Primary Care Provider [phone] Encounter Details Date Type Department Care Team (Latest Contact Info) Description 10/30/2016 Orders Only [facility] CLINCONV ProviderAbbie MD [address] [place] [address] Social History Tobacco Use Types Packs/Day Years Used Date Smoking Tobacco: Never Assessed Comments Unknown Sex and Gender Information Value Date Recorded Sex Assigned at Not on file 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 Historical Provider Final Res ult documented in this encounter Visit Diagnoses Not on filedocumented in this encounter Care Teams Scroll Saw Operator Relationship Specialty Start Date End Date Nanette Veras MD [address] [place] [address] PCP - General Family Medicine 11/28/18 12/05/23 No, Physician PCP - General 12/06/23 documented as of this encounter
--- OUTSIDE RECORDS SUMMARY | 2024-10-21 11:40 | XMS_ITS | Encounter Summary ---
Author Organization [facility] Address [facility] [place] [address] Care Team Providers Care Soaking Pits Supervisor Name Role Phone Nanette Veras MD Primary Care Provider [phone] Encounter Details Date Type Department Care Team (Late st Contact Info) Description 02/16/2017 [place] [address] , Generic Conversion, Social History Tobacco Use Types Packs/Day Years Used Date Smoking Tobacco: Never Assessed Comments Unknown Sex and Gender Information Value Date Recorded Sex Assigned at Not on file Legal Sex Female 4:05 PM CDT Gender Identity Not on file Sexual Orientation Not on file documented as of this encounter Plan of Treatment Not on file documented as of this encounter Visit Diagnoses Not on filedocumented in this encounter Care Teams Soaking Pits Supervisor Relationship Specialty Start Date End Date Nanette Veras MD PCP - General 10/20/14 documented as of this encounter
--- OUTSIDE RECORDS SUMMARY | 2024-10-21 11:40 | XMS_ITS | Encounter Summary ---
Author Organization 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 Historical Provider Final Res ult documented in this encounter Visit Diagnoses Not on filedocumented in this encounter Care Teams Card Writer Hand Relationship Specialty Start Date End Date Nanette Veras MD [address] [place] [address] PCP - General Family Medicine 11/28/18 12/05/23 No, Physician PCP - General 12/06/23 documented as of this encounter
[2024-10-21 11:44] VITALS: BP 108/69; PULSE 78; RESP 18; TEMP 36.5; O2SAT 97
[2024-10-21] MEDS: TETANUS,DIPHTHERIA,AC PERTUSSIS ADULT (0.5 ML) BOOSTRIX IM (11:53)
[2024-10-21] MEDS: CELLULOSE OXIDIZED 2 x 14 INCH 1 PKT XX (11:53)
--- NOTE | 2024-10-21 12:03 | PC.NURSE ---
1202- cellulose not used, returned to pyxis. Suturing instead
[2024-10-21] MEDS: LIDOCAINE 1% LOCAL INJ 2 ML AMPUL 4 ML INFILTRATE (12:04)
== END 2024-10-21 12:46 | disposition home or self-care (01) ==
PROVIDERS: Emergency Provider Nurse Practitioner Family
DX: S61.316A Laceration without foreign body of right little finger with damage to nail, initial encounter (principal); W27.4XXA Contact with kitchen utensil, initial encounter; Z23 Encounter for immunization; F17.210 Nicotine dependence, cigarettes, uncomplicated
CPT/HCPCS: 12001; 90471; 90715; 99213; G0463; J2003